=== PATIENT | female | born 1945 | race Caucasian/White ===

== ENCOUNTER 2016-08-08 14:57 | Inpatient (IN) | payer MEDICARE, SELFPAY ==
[~2016-08-08] VITALS: Ht 162.6 cm; Wt 50.0 kg
[2016-08-08] MEDS ORDERED: DILTIAZEM 125 MG in DEXTROSE 5% 100 ML IV SCH (15:15)
[2016-08-08] MEDS ORDERED: DILTIAZEM 5 MG/ML, 5ML ONE (15:16)
[2016-08-08] MEDS ORDERED: SODIUM CHLORIDE FLUSH 10ML SYR IVF ONE (15:30)
[2016-08-08] MEDS ORDERED: DILTIAZEM 5 MG/ML, 5ML IV ONE (15:30)
[2016-08-08 15:44] LABS: HEMOGLOBIN 15.2 g/dL (11.7-16.4)
[2016-08-08] MEDS ORDERED: SODIUM CHLORIDE 0.9%, 500ML IVBOLUS ONE (16:00)
[2016-08-08 16:02] LABS: ASPARTATE AMINO TRANSFERASE 26 U/L (15-37); BLOOD UREA NITROGEN 18 mg/dL (7-18)
[2016-08-08 16:21] LABS: IS PT STATUS REG ER OR PRE ER? YES
[2016-08-08] MEDS ORDERED: DIGOXIN 0.25 MG/ML, 2ML IVPush ONE (16:30)
[2016-08-08] MEDS ORDERED: HEPARIN 25,000 UNITS/500ML PMX 500 ML IV PRN ×2 (16:30→18:00)
[2016-08-08] MEDS ORDERED: DIGOXIN 0.25 MG/ML, 2ML ONE (16:45)
[2016-08-08] MEDS ORDERED: HEPARIN 25,000 UNITS/500ML PMX 500 ML ONE (16:58)
[2016-08-08] MEDS ORDERED: HEPARIN 5,000 UNITS/ML, 1ML ONE (16:58)
[2016-08-08 17:49] LABS: ICTOTEST POSITIVE
[2016-08-08] MEDS ORDERED: CEFTRIAXONE PMX 1GM/50ML 50 ML IV ONE (18:00)
[2016-08-08] MEDS ORDERED: HEPARIN 5,000 UNITS/ML, 1ML IV ONE (18:00)
[2016-08-08] MEDS ORDERED: ACETAMINOPHEN 325 MG TABLET PO PRN (19:00)
[2016-08-08] MEDS ORDERED: BISACODYL 10 MG SUPP PR PRN (19:00)
[2016-08-08] MEDS ORDERED: DOCUSATE 100 MG CAPSULE PO PRN (19:00)
[2016-08-08 19:30] LABS: IS PT STATUS REG ER OR PRE ER? YES
[2016-08-08 22:21] VITALS: BP 108/53
[2016-08-08] MEDS ORDERED: DILTIAZEM 125 MG in SODIUM CHLORIDE 0.9% 100 ML IV PRN (23:00)
[2016-08-09 00:56] LABS: IS PT STATUS REG ER OR PRE ER? NO
[2016-08-09] MEDS: HEPARIN 5,000 UNITS/ML, 1ML IV PRN ×3 (01:25→16:22)
[2016-08-09 02:00] VITALS: BP 110/65
[2016-08-09 05:46] LABS: HEMOGLOBIN 14.2 g/dL (11.7-16.4)
[2016-08-09 06:03] LABS: ASPARTATE AMINO TRANSFERASE 30 U/L (15-37); BLOOD UREA NITROGEN 17 mg/dL (7-18)
[2016-08-09 07:11] VITALS: BP 113/66
[2016-08-09] MEDS: DIGOXIN 0.25 MG TABLET PO SCH (11:21)
[2016-08-09] MEDS: DILTIAZEM 60 MG TABLET PO SCH ×3 (11:21→22:49)
[2016-08-09 13:16] VITALS: BP 126/67
[2016-08-09] MEDS ORDERED: FUROSEMIDE 20 MG/2 ML IV ONE (13:30)
[2016-08-09] MEDS ORDERED: MAGNESIUM SULFATE PMX 2GM/50ML 50 ML IV ONE (13:30)
[2016-08-09 18:40] VITALS: BP 110/51
[2016-08-10] MEDS: HEPARIN 5,000 UNITS/ML, 1ML IV PRN ×2 (00:02→12:35)
[2016-08-10 01:35] VITALS: BP 108/58
[2016-08-10] MEDS: DILTIAZEM 60 MG TABLET PO SCH (04:21)
[2016-08-10 06:14] LABS: HEMOGLOBIN 13.4 g/dL (11.7-16.4)
[2016-08-10 06:18] LABS: BLOOD UREA NITROGEN 10 mg/dL (7-18)
[2016-08-10 08:20] VITALS: BP 109/59
[2016-08-10] MEDS: FUROSEMIDE 20 MG TABLET PO SCH (09:34)
[2016-08-10] MEDS: ASPIRIN 325 MG TABLET PO SCH (09:34)
[2016-08-10] MEDS: METOPROLOL TARTRATE 25 MG TABLET PO SCH ×2 (09:34→18:44)
[2016-08-10] MEDS: DILTIAZEM 120 MG CAP.ER.24H PO SCH (09:34)
[2016-08-10] MEDS: DIGOXIN 0.25 MG TABLET PO SCH (09:35)
[2016-08-10] MEDS ORDERED: MAGNESIUM SULFATE PMX 2GM/50ML 50 ML IV ONE (11:30)
[2016-08-10 15:34] VITALS: BP 100/59
[2016-08-10] MEDS: ENOXAPARIN 60 MG/0.6 ML SQ SCH (18:44)
[2016-08-10 19:42] VITALS: BP 106/59
[2016-08-11 03:30] VITALS: BP 116/65
[2016-08-11] MEDS: ASPIRIN 325 MG TABLET PO SCH (05:20)
[2016-08-11] MEDS: ENOXAPARIN 60 MG/0.6 ML SQ SCH ×2 (05:20→17:34)
[2016-08-11] MEDS: METOPROLOL TARTRATE 25 MG TABLET PO SCH ×2 (05:20→17:34)
[2016-08-11 06:04] LABS: HEMOGLOBIN 13.5 g/dL (11.7-16.4)
[2016-08-11 06:22] LABS: BLOOD UREA NITROGEN 10 mg/dL (7-18)
[2016-08-11 07:05] VITALS: BP 94/57
[2016-08-11] MEDS: DILTIAZEM 120 MG CAP.ER.24H PO SCH (08:52)
[2016-08-11] MEDS: DIGOXIN 0.25 MG TABLET PO SCH (08:53)
[2016-08-11] MEDS: FUROSEMIDE 20 MG TABLET PO SCH (08:58)
[2016-08-11 12:55] VITALS: BP 117/76
[2016-08-11 19:19] VITALS: BP 100/60
[2016-08-12 02:37] VITALS: BP 115/79
[2016-08-12] MEDS: METOPROLOL TARTRATE 25 MG TABLET PO SCH (04:52)
[2016-08-12] MEDS: ENOXAPARIN 60 MG/0.6 ML SQ SCH (04:53)
[2016-08-12 05:34] LABS: HEMOGLOBIN 13.1 g/dL (11.7-16.4)
[2016-08-12 05:45] LABS: BLOOD UREA NITROGEN 9 mg/dL (7-18)
[2016-08-12] MEDS: ASPIRIN 325 MG TABLET PO SCH (06:39)
[2016-08-12 06:52] VITALS: BP 106/67
[2016-08-12] MEDS: DIGOXIN 0.25 MG TABLET PO SCH (08:19)
[2016-08-12] MEDS: DILTIAZEM 120 MG CAP.ER.24H PO SCH (08:20)
[2016-08-12] MEDS: FUROSEMIDE 20 MG TABLET PO SCH (08:20)
[2016-08-12] MEDS ORDERED: DILT120C9 PO (11:31)
[2016-08-12] MEDS ORDERED: METO25TA35 PO (11:31)
[2016-08-12] MEDS ORDERED: ASPI325T4 PO (11:31)
[2016-08-12] MEDS ORDERED: FURO20TA3 PO (11:31)
[2016-08-12] MEDS ORDERED: METH10TA6 PO (11:31)
[2016-08-12] MEDS ORDERED: IPRA3AMP NEB (11:34)
[2016-08-12 13:35] VITALS: BP 119/62
== END 2016-08-12 17:21 | DRG 643 ==
LOC: ED 16:33 → EDIP 17:59 → 5SO 19:51
PROVIDERS: ADMIT Internal Medicine; ATTEND Internal Medicine
PROC: 0T9B70Z Drainage of Bladder with Drainage Device, Via Natural or Artificial Opening (ICD-10-PCS; principal; 2016-08-08)
DX: E03.9 Hypothyroidism, unspecified (principal); E43 Unspecified severe protein-calorie malnutrition; E87.1 Hypo-osmolality and hyponatremia; D68.59 Other primary thrombophilia; R64 Cachexia; L03.90 Cellulitis, unspecified; Z68.1 Body mass index [BMI] 19.9 or less, adult; L03.116 Cellulitis of left lower limb; L03.115 Cellulitis of right lower limb; I48.91 Unspecified atrial fibrillation; G62.9 Polyneuropathy, unspecified; R74.8 Abnormal levels of other serum enzymes; F17.210 Nicotine dependence, cigarettes, uncomplicated; J44.9 Chronic obstructive pulmonary disease, unspecified; M06.9 Rheumatoid arthritis, unspecified; I27.2 Other secondary pulmonary hypertension; E05.00 Thyrotoxicosis with diffuse goiter without thyrotoxic crisis or storm; R09.02 Hypoxemia; E83.42 Hypomagnesemia; Z91.81 History of falling; Z90.89 Acquired absence of other organs; Z88.5 Allergy status to narcotic agent; Z88.0 Allergy status to penicillin
CPT/HCPCS: 36415; 70450; 71010; 76536; 80048; 80053; 80061; 81001; 82247; 82248; 82550; 83735; 83880; 84100; 84145; 84439; 84443; 84484; 85025; 85520; 85610; 85730; 87040; 87086; 93005; 93306; 93970; 96361; 96374; 96375; J1644; J1650; J1160; J1940; J3475; J7040

== ENCOUNTER 2016-08-17 19:33 | Inpatient (IN) | payer MEDICARE ==
[~2016-08-17] VITALS: Ht 162.6 cm; Wt 47.4 kg
[~2016-08-17 19:33] MED LIST: ASPI325T4 PO; DILT120C9 PO; FURO20TA3 PO; IPRA3AMP NEB; METH10TA6 PO; METO25TA35 PO
[2016-08-17] MEDS ORDERED: OMNIPAQUE 350 MG/ML, 100ML BOTTLE ONE (20:05)
[2016-08-17] MEDS ORDERED: METO25TA35 PO (20:05)
[2016-08-17] MEDS ORDERED: METH10TA6 PO (20:05)
[2016-08-17] MEDS ORDERED: PLEASE ENTER ALLERGIES MC SCH ×2 (20:30)
[2016-08-17] MEDS ORDERED: ONDANSETRON 2MG/ML, 2ML IVPush ONE ×2 (20:30→21:30)
[2016-08-17] MEDS ORDERED: VANCOMYCIN PER PHARMACY MC PRN (20:30)
[2016-08-17] MEDS ORDERED: PLEASE ENTER HEIGHT AND WEIGHT MC SCH (20:30)
[2016-08-17] MEDS ORDERED: PIPERACILLIN/TAZO/PMX 3.375GM 50 ML ONE (20:38)
[2016-08-17] MEDS ORDERED: ONDANSETRON 2MG/ML, 2ML ONE (20:38)
[2016-08-17] MEDS: PIPERACILLIN/TAZO/PMX 3.375GM 50 ML IV SCH (20:39)
[2016-08-17 20:50] LABS: ASPARTATE AMINO TRANSFERASE 8 U/L (15-37); BLOOD UREA NITROGEN 29 mg/dL (7-18)
[2016-08-17 20:59] LABS: IS PT STATUS REG ER OR PRE ER? YES
[2016-08-17] MEDS ORDERED: VANCOMYCIN 1,200 MG in SODIUM CHLORIDE 0.9% 250 ML IV ONE (21:00)
[2016-08-17] MEDS ORDERED: DILTIAZEM 5 MG/ML, 5ML ONE ×2 (21:00→21:28)
[2016-08-17] MEDS ORDERED: PHARMACOKINETIC CONSULTATION MC ONE (21:00)
[2016-08-17] MEDS ORDERED: MORPHINE SULFATE 4 MG/ML, 1ML ONE (21:18)
[2016-08-17] MEDS ORDERED: SODIUM CHLORIDE 0.9% 1,000ML IVBOLUS ONE (21:30)
[2016-08-17] MEDS ORDERED: MORPHINE SULFATE 4 MG/ML, 1ML IVPush PRN (21:30)
[2016-08-17] MEDS ORDERED: DILTIAZEM 5 MG/ML, 5ML IV ONE (21:30)
[2016-08-17] MEDS ORDERED: morphine SULFATE 10 MG/ML, 1ML IVPush ONE (21:30)
[2016-08-17] MEDS ORDERED: NOREPINEPHRINE 1 MG/ML, 4ML ONE (22:57)
[2016-08-17] MEDS ORDERED: FENTANYL PF 250 MCG/5ML ONE (23:21)
[2016-08-17] MEDS ORDERED: KETAMINE 10 MG/ML, 20ML ONE (23:21)
[2016-08-17] MEDS ORDERED: METOPROLOL 1 MG/ML, 5ML ONE (23:33)
[2016-08-17] MEDS ORDERED: ROCURONIUM 10 MG/ML ONE (23:33)
[2016-08-17] MEDS ORDERED: SUCCINYLCHOLINE 20 MG/ML, 10ML ONE (23:33)
[2016-08-17] MEDS ORDERED: PROPOFOL 10 MG/ML, 20ML ONE (23:33)
[2016-08-18] MEDS ORDERED: ALBUMIN HUMAN 5% 500 ML ONE (00:18)
[2016-08-18] MEDS ORDERED: ALBUMIN HUMAN 25% 50 ML ONE (00:19)
[2016-08-18] MEDS ORDERED: NOREPINEPHRINE 4 MG in SODIUM CHLORIDE 0.9% 246 ML IV PRN (01:30)
[2016-08-18] MEDS ORDERED: PROPOFOL 100 ML IV ONE (02:07)
[2016-08-18] MEDS: PROPOFOL 100 ML IV PRN (02:16)
[2016-08-18] MEDS ORDERED: LIDOCAINE-MPF 1%, 2ML ENDO PRN (02:30)
[2016-08-18] MEDS ORDERED: PHARMACY MAY ADJ FOR RENAL FX MC SCH (02:30)
[2016-08-18 02:45] VITALS: BP 97/55
[2016-08-18] MEDS ORDERED: FILTER 0.22 MICRON IV PRN (03:00)
[2016-08-18] MEDS ORDERED: AMIODARONE 150 MG in DEXTROSE 5% 100 ML IV ONE (03:00)
[2016-08-18] MEDS: AMIODARONE 900 MG in DEXTROSE 5% 482 ML IV PRN ×2 (03:01→21:03)
[2016-08-18] MEDS: PIPERACILLIN/TAZO/PMX 3.375GM 50 ML IV SCH (03:40)
[2016-08-18] MEDS: ALBUTEROL/IPRATROPIUM 2.5MG/0.5MG, 3 ML NPPB SCH ×6 (04:42→21:57)
[2016-08-18] MEDS ORDERED: ALBUTEROL/IPRATROPIUM 2.5MG/0.5MG, 3 ML ONE (04:46)
[2016-08-18] MEDS ORDERED: SODIUM CHLORIDE 0.9% 1,000 ML IV SCH (05:11)
[2016-08-18] MEDS ORDERED: ALBUMIN HUMAN 5% 500 ML IV ONE (05:30)
[2016-08-18] MEDS ORDERED: MAGNESIUM SULFATE PMX 4GM/100M 100 ML IV ONE ×2 (05:30→07:30)
[2016-08-18] MEDS ORDERED: DILTIAZEM 125 MG in SODIUM CHLORIDE 0.9% 100 ML IV PRN (05:30)
[2016-08-18] MEDS ORDERED: PANTOPRAZOLE 80 MG in SODIUM CHLORIDE 0.9% 50 ML IV ONE (05:30)
[2016-08-18] MEDS ORDERED: SODIUM CHLORIDE 0.9% 1,000ML IVBOLUS ONE ×3 (05:30)
[2016-08-18] MEDS ORDERED: PANTOPRAZOLE 80 MG in SODIUM CHLORIDE 0.9% 100 ML IV SCH (05:30)
[2016-08-18] MEDS ORDERED: ONDANSETRON 2MG/ML, 2ML IVP PRN (05:30)
[2016-08-18] MEDS ORDERED: BISACODYL 10 MG SUPP PR PRN (05:30)
[2016-08-18] MEDS ORDERED: DOCUSATE 100 MG CAPSULE PO PRN (05:30)
[2016-08-18] MEDS ORDERED: POLYETHYLENE GLYCOL 17 GM PACKET PO PRN (05:30)
[2016-08-18 05:36] LABS: ABG COLLECTION SITE NOT DOCUMENTED
[2016-08-18] MEDS ORDERED: CEFEPIME 2 GM in DEXTROSE 5% 100 ML IV SCH (06:00)
[2016-08-18] MEDS ORDERED: METRONIDAZOLE PMX 500MG/100ML 100 ML IV SCH (06:00)
[2016-08-18] MEDS ORDERED: ASPIRIN 325 MG TABLET PO SCH (06:00)
[2016-08-18] MEDS: FENTANYL PF 2,500 MCG in SODIUM CHLORIDE 0.9% 200 ML IV PRN (06:23)
[2016-08-18 06:30] LABS: ASPARTATE AMINO TRANSFERASE 8 U/L (15-37); BLOOD UREA NITROGEN 21 mg/dL (7-18)
[2016-08-18 06:49] LABS: DIFF TOTAL CELLS COUNTED 100 CELL DIFF
[2016-08-18 06:55] LABS: POLYCHROMASIA 1+; VERIFY COUNTS? YES
[2016-08-18] MEDS ORDERED: PHARMACOKINETIC MONITORING MC PRN (07:00)
[2016-08-18] MEDS: NOREPINEPHRINE 8 MG in SODIUM CHLORIDE 0.9% 242 ML IV PRN ×2 (07:24→16:04)
[2016-08-18] MEDS ORDERED: MEROPENEM 1 GM in SODIUM CHLORIDE 0.9% 50 ML IV SCH (07:30)
[2016-08-18] MEDS: PANTOPRAZOLE 40 MG IV IVPush SCH ×2 (08:15→21:03)
[2016-08-18] MEDS ORDERED: METOPROLOL TARTRATE 25 MG TABLET PO SCH (09:00)
[2016-08-18] MEDS: FLUCONAZOLE 200 MG/100 ML 100 ML IV SCH (09:51)
[2016-08-18] MEDS: DIPHENHYDRAMINE 50 MG/ML, 1ML IVPush PRN ×2 (09:58→16:02)
[2016-08-18] MEDS: HEPARIN 5,000 UNITS/ML, 1ML SQ SCH (12:54)
[2016-08-18] MEDS: SODIUM CHLORIDE 0.9% 1,000 ML IV SCH ×2 (14:29→22:37)
[2016-08-18] MEDS: MORPHINE SULFATE 4 MG/ML, 1ML IVPush PRN (14:30)
[2016-08-18] MEDS: MEROPENEM 1 GM in SODIUM CHLORIDE 0.9% 100 ML IV SCH (22:37)
[2016-08-19] MEDS ORDERED: SODIUM CHLORIDE 0.9% 1,000ML IVBOLUS ONE (00:30)
[2016-08-19] MEDS: HEPARIN 5,000 UNITS/ML, 1ML SQ SCH ×2 (01:23→13:19)
[2016-08-19] MEDS: ALBUTEROL/IPRATROPIUM 2.5MG/0.5MG, 3 ML NPPB SCH ×6 (02:15→22:31)
[2016-08-19] MEDS ORDERED: SODIUM CHLORIDE 0.9%, 500ML IVBOLUS ONE (02:30)
[2016-08-19] MEDS ORDERED: SODIUM CHLORIDE 0.9% 1,000 ML IV SCH (05:11)
[2016-08-19 05:21] LABS: ABG COLLECTION SITE ARTERIAL LINE
[2016-08-19 05:39] LABS: BLOOD UREA NITROGEN 13 mg/dL (7-18)
[2016-08-19] MEDS: NOREPINEPHRINE 8 MG in SODIUM CHLORIDE 0.9% 242 ML IV PRN ×2 (06:19→17:31)
[2016-08-19] MEDS: MEROPENEM 1 GM in SODIUM CHLORIDE 0.9% 100 ML IV SCH ×3 (06:21→21:49)
[2016-08-19 06:27] LABS: DIFF TOTAL CELLS COUNTED 100 CELL DIFF
[2016-08-19 06:28] LABS: VERIFY COUNTS? YES
[2016-08-19] MEDS: PROPOFOL 100 ML IV PRN ×2 (06:28→19:42)
[2016-08-19] MEDS: DIPHENHYDRAMINE 50 MG/ML, 1ML IVPush SCH ×4 (09:10→21:48)
[2016-08-19] MEDS: FLUCONAZOLE 200 MG/100 ML 100 ML IV SCH (09:10)
[2016-08-19] MEDS: PANTOPRAZOLE 40 MG IV IVPush SCH ×2 (09:10→21:48)
[2016-08-19] MEDS: SODIUM CHLORIDE 0.9% 1,000 ML IV SCH ×2 (09:11→21:48)
[2016-08-19] MEDS ORDERED: VASOPRESSIN 100 UNIT in SODIUM CHLORIDE 0.9% 495 ML IV PRN (15:30)
[2016-08-19] MEDS ORDERED: AMIODARONE 150 MG in DEXTROSE 5% 100 ML IV ONE (15:30)
[2016-08-19] MEDS: HYDROCORTISONE 100 MG INJ. IVPush SCH (17:02)
[2016-08-19] MEDS: MORPHINE SULFATE 4 MG/ML, 1ML IVPush PRN (23:30)
[2016-08-20] MEDS: ALBUTEROL/IPRATROPIUM 2.5MG/0.5MG, 3 ML NPPB SCH ×6 (01:48→22:15)
[2016-08-20] MEDS: DIPHENHYDRAMINE 50 MG/ML, 1ML IVPush SCH ×6 (02:26→19:48)
[2016-08-20] MEDS: AMIODARONE 900 MG in DEXTROSE 5% 482 ML IV PRN (02:27)
[2016-08-20] MEDS: HYDROCORTISONE 100 MG INJ. IVPush SCH ×3 (02:27→17:03)
[2016-08-20] MEDS: HEPARIN 5,000 UNITS/ML, 1ML SQ SCH ×2 (02:28→12:38)
[2016-08-20 03:21] LABS: BLOOD UREA NITROGEN 10 mg/dL (7-18)
[2016-08-20 04:55] LABS: ABG COLLECTION SITE LEFT RADIAL; COLLATERAL CIRCULATION TESTING NORMAL
[2016-08-20] MEDS: SODIUM CHLORIDE 0.9% 1,000 ML IV SCH ×3 (06:19→22:00)
[2016-08-20] MEDS: MEROPENEM 1 GM in SODIUM CHLORIDE 0.9% 100 ML IV SCH ×3 (06:19→22:58)
[2016-08-20] MEDS: NOREPINEPHRINE 8 MG in SODIUM CHLORIDE 0.9% 242 ML IV PRN ×2 (06:23→14:47)
[2016-08-20] MEDS ORDERED: MAGNESIUM SULFATE PMX 4GM/100M 100 ML IV ONE (07:00)
[2016-08-20] MEDS: PANTOPRAZOLE 40 MG IV IVPush SCH ×2 (08:30→19:48)
[2016-08-20] MEDS: FLUCONAZOLE 200 MG/100 ML 100 ML IV SCH (08:33)
[2016-08-20] MEDS: ALBUMIN HUMAN 25% 100 ML IV SCH ×2 (11:30→19:48)
[2016-08-20] MEDS: PROPOFOL 100 ML IV PRN (13:12)
[2016-08-20] MEDS: FENTANYL PF 2,500 MCG in SODIUM CHLORIDE 0.9% 200 ML IV PRN (17:23)
[2016-08-21] MEDS: HEPARIN 5,000 UNITS/ML, 1ML SQ SCH ×3 (00:32→23:55)
[2016-08-21] MEDS: DIPHENHYDRAMINE 50 MG/ML, 1ML IVPush SCH ×7 (00:33→23:54)
[2016-08-21] MEDS: HYDROCORTISONE 100 MG INJ. IVPush SCH ×4 (00:33→23:54)
[2016-08-21] MEDS: ALBUTEROL/IPRATROPIUM 2.5MG/0.5MG, 3 ML NPPB SCH ×6 (02:58→21:48)
[2016-08-21] MEDS: ALBUMIN HUMAN 25% 100 ML IV SCH ×3 (03:39→19:41)
[2016-08-21] MEDS: AMIODARONE 900 MG in DEXTROSE 5% 482 ML IV PRN (03:50)
[2016-08-21] MEDS: NOREPINEPHRINE 8 MG in SODIUM CHLORIDE 0.9% 242 ML IV PRN (03:51)
[2016-08-21] MEDS: PROPOFOL 100 ML IV PRN (03:51)
[2016-08-21 04:00] VITALS: BP 98/52
[2016-08-21 04:13] LABS: BLOOD UREA NITROGEN 9 mg/dL (7-18)
[2016-08-21 04:29] LABS: ABG COLLECTION SITE RIGHT RADIAL; COLLATERAL CIRCULATION TESTING NORMAL
[2016-08-21 04:48] LABS: DIFF TOTAL CELLS COUNTED 100 CELL DIFF
[2016-08-21 04:52] LABS: VERIFY COUNTS? YES
[2016-08-21 04:53] LABS: POLYCHROMASIA 1+
[2016-08-21] MEDS: SODIUM CHLORIDE 0.9% 1,000 ML IV SCH (05:26)
[2016-08-21] MEDS: MEROPENEM 1 GM in SODIUM CHLORIDE 0.9% 100 ML IV SCH ×3 (05:26→23:00)
[2016-08-21] MEDS: FLUCONAZOLE 200 MG/100 ML 100 ML IV SCH (08:20)
[2016-08-21] MEDS: PANTOPRAZOLE 40 MG IV IVPush SCH ×2 (08:20→19:41)
[2016-08-21 08:55] VITALS: BP 108/57
[2016-08-21] MEDS ORDERED: DIGOXIN 0.25 MG/ML, 2ML IVPush ONE ×2 (09:30→16:00)
[2016-08-21 10:07] LABS: PROTEINASE 3 (PR-3) AB <3.5 U/mL (0.0-3.5)
[2016-08-21] MEDS: FENTANYL PF 2,500 MCG in SODIUM CHLORIDE 0.9% 200 ML IV PRN (17:01)
[2016-08-22] MEDS: PROPOFOL 100 ML IV PRN (02:17)
[2016-08-22] MEDS: ALBUTEROL/IPRATROPIUM 2.5MG/0.5MG, 3 ML NPPB SCH ×6 (02:28→23:31)
[2016-08-22] MEDS: ALBUMIN HUMAN 25% 100 ML IV SCH ×3 (03:15→19:46)
[2016-08-22 04:25] LABS: ABG COLLECTION SITE LEFT RADIAL; COLLATERAL CIRCULATION TESTING NORMAL
[2016-08-22] MEDS: DIPHENHYDRAMINE 50 MG/ML, 1ML IVPush SCH ×5 (04:33→19:46)
[2016-08-22 04:57] LABS: BLOOD UREA NITROGEN 7 mg/dL (7-18)
[2016-08-22] MEDS: MEROPENEM 1 GM in SODIUM CHLORIDE 0.9% 100 ML IV SCH ×3 (06:02→23:34)
[2016-08-22] MEDS ORDERED: MAGNESIUM SULFATE PMX 4GM/100M 100 ML IV ONE (07:00)
[2016-08-22] MEDS: FLUCONAZOLE 200 MG/100 ML 100 ML IV SCH (09:35)
[2016-08-22] MEDS: HYDROCORTISONE 100 MG INJ. IVPush SCH ×2 (09:36→16:46)
[2016-08-22] MEDS: PANTOPRAZOLE 40 MG IV IVPush SCH ×2 (09:36→19:46)
[2016-08-22] MEDS: POTASSIUM CHLORIDE 10% 40 MEQ/30 ML UDC PO SCH ×2 (09:59→19:46)
[2016-08-22] MEDS: DIGOXIN 0.25 MG TABLET PO SCH (09:59)
[2016-08-22] MEDS: SODIUM CHLORIDE 0.9% 1,000 ML IV SCH (13:59)
[2016-08-22] MEDS: HEPARIN 5,000 UNITS/ML, 1ML SQ SCH (13:59)
[2016-08-22] MEDS ORDERED: ALBUTEROL/IPRATROPIUM 2.5MG/0.5MG, 3 ML NPPB PRN (19:00)
[2016-08-22 23:44] LABS: ABG COLLECTION SITE LEFT RADIAL; COLLATERAL CIRCULATION TESTING NORMAL
[2016-08-23] MEDS: HEPARIN 5,000 UNITS/ML, 1ML SQ SCH ×2 (01:00→14:47)
[2016-08-23 01:15] LABS: ABG COLLECTION SITE LEFT RADIAL; COLLATERAL CIRCULATION TESTING NORMAL
[2016-08-23] MEDS ORDERED: FUROSEMIDE 40 MG/4 ML ONE (01:41)
[2016-08-23] MEDS ORDERED: FUROSEMIDE 40 MG/4 ML IV STA (01:42)
[2016-08-23 02:56] LABS: ABG COLLECTION SITE LEFT RADIAL; COLLATERAL CIRCULATION TESTING NORMAL
[2016-08-23] MEDS: ALBUMIN HUMAN 25% 100 ML IV SCH ×3 (04:10→21:54)
[2016-08-23] MEDS: DIPHENHYDRAMINE 50 MG/ML, 1ML IVPush SCH ×3 (04:10→08:30)
[2016-08-23 04:29] LABS: ABG COLLECTION SITE LEFT RADIAL; COLLATERAL CIRCULATION TESTING NORMAL
[2016-08-23 05:01] LABS: BLOOD UREA NITROGEN 9 mg/dL (7-18)
[2016-08-23] MEDS: MEROPENEM 1 GM in SODIUM CHLORIDE 0.9% 100 ML IV SCH ×3 (05:54→22:55)
[2016-08-23 06:11] LABS: DIFF TOTAL CELLS COUNTED 100 CELL DIFF
[2016-08-23 06:14] LABS: VERIFY COUNTS? YES
[2016-08-23 06:18] LABS: POLYCHROMASIA 1+
[2016-08-23] MEDS: FLUCONAZOLE 200 MG/100 ML 100 ML IV SCH (08:54)
[2016-08-23] MEDS: PANTOPRAZOLE 40 MG IV IVPush SCH ×2 (08:55→19:40)
[2016-08-23] MEDS: HYDROCORTISONE 100 MG INJ. IVPush SCH ×3 (08:55→17:15)
[2016-08-23] MEDS: DIGOXIN 0.25 MG TABLET PO SCH (08:56)
[2016-08-23] MEDS: ALBUTEROL/IPRATROPIUM 2.5MG/0.5MG, 3 ML NPPB SCH (10:00)
[2016-08-23] MEDS: POTASSIUM CHLORIDE 10% 40 MEQ/30 ML UDC NG SCH ×2 (10:40→19:41)
[2016-08-23] MEDS ORDERED: PROPOFOL 10 MG/ML, 20ML ONE (12:00)
[2016-08-23] MEDS ORDERED: PROPOFOL 10 MG/ML, 100ML IV ONE (12:00)
[2016-08-23] MEDS ORDERED: VECURONIUM 10 MG ONE (12:00)
[2016-08-23] MEDS: SODIUM CHLORIDE 0.9% 1,000 ML IV SCH (14:49)
[2016-08-23] MEDS: ALBUTEROL/IPRATROPIUM 2.5MG/0.5MG, 3 ML INLINE SCH ×2 (19:00→22:04)
[2016-08-23] MEDS: PROPOFOL 100 ML IV PRN (19:40)
[2016-08-24] MEDS: HEPARIN 5,000 UNITS/ML, 1ML SQ SCH ×2 (00:25→12:19)
[2016-08-24] MEDS: HYDROCORTISONE 100 MG INJ. IVPush SCH ×3 (00:25→17:45)
[2016-08-24] MEDS: AMIODARONE 900 MG in DEXTROSE 5% 482 ML IV PRN (00:26)
[2016-08-24] MEDS: ALBUTEROL/IPRATROPIUM 2.5MG/0.5MG, 3 ML INLINE SCH ×6 (03:00→23:00)
[2016-08-24 04:29] LABS: ABG COLLECTION SITE RIGHT RADIAL; COLLATERAL CIRCULATION TESTING NORMAL
[2016-08-24 04:42] LABS: BLOOD UREA NITROGEN 11 mg/dL (7-18)
[2016-08-24 05:05] LABS: DIFF TOTAL CELLS COUNTED 100 CELL DIFF
[2016-08-24 05:12] LABS: VERIFY COUNTS? YES
[2016-08-24 05:14] LABS: ANISOCYTOSIS 1+; HYPOCHROMIA 1+; POLYCHROMASIA 1+; TARGET CELLS 1+
[2016-08-24] MEDS: PROPOFOL 100 ML IV PRN ×2 (05:34→17:25)
[2016-08-24] MEDS: ALBUMIN HUMAN 25% 100 ML IV SCH ×3 (05:34→22:43)
[2016-08-24] MEDS: FENTANYL PF 2,500 MCG in SODIUM CHLORIDE 0.9% 200 ML IV PRN (05:35)
[2016-08-24] MEDS: MEROPENEM 1 GM in SODIUM CHLORIDE 0.9% 100 ML IV SCH ×3 (06:21→22:43)
[2016-08-24] MEDS ORDERED: MAGNESIUM SULFATE PMX 4GM/100M 100 ML IV ONE (07:00)
[2016-08-24] MEDS ORDERED: BISACODYL 10 MG SUPP PR PRN (08:00)
[2016-08-24] MEDS: POTASSIUM CHLORIDE 10% 40 MEQ/30 ML UDC NG SCH ×2 (09:12→20:54)
[2016-08-24] MEDS: PANTOPRAZOLE 40 MG IV IVPush SCH ×2 (09:12→20:54)
[2016-08-24] MEDS: FLUCONAZOLE 200 MG/100 ML 100 ML IV SCH (09:12)
[2016-08-24] MEDS: DIGOXIN 0.25 MG TABLET PO SCH (09:13)
[2016-08-24] MEDS ORDERED: FUROSEMIDE 40 MG/4 ML IV ONE (10:00)
[2016-08-24] MEDS ORDERED: FUROSEMIDE 40 MG/4 ML IV SCH (17:00)
[2016-08-24] MEDS ORDERED: INSULIN REGULAR 100 UNITS/ML, 3ML VIAL ONE (19:24)
[2016-08-24] MEDS: SODIUM CHLORIDE 0.9% 1,000 ML IV SCH (20:54)
[2016-08-25] MEDS: HEPARIN 5,000 UNITS/ML, 1ML SQ SCH ×2 (00:06→13:11)
[2016-08-25] MEDS: HYDROCORTISONE 100 MG INJ. IVPush SCH ×4 (00:06→23:51)
[2016-08-25] MEDS: PROPOFOL 100 ML IV PRN ×4 (00:10→20:24)
[2016-08-25] MEDS: ALBUTEROL/IPRATROPIUM 2.5MG/0.5MG, 3 ML INLINE SCH ×6 (03:00→23:06)
[2016-08-25] MEDS: AMIODARONE 900 MG in DEXTROSE 5% 482 ML IV PRN (03:35)
[2016-08-25 04:28] LABS: BLOOD UREA NITROGEN 18 mg/dL (7-18)
[2016-08-25 04:46] LABS: ABG COLLECTION SITE RIGHT BRACHIAL
[2016-08-25] MEDS: AcetaZOLAMIDE INJ 500 MG IVPush SCH ×2 (05:54→16:11)
[2016-08-25] MEDS: ALBUMIN HUMAN 25% 100 ML IV SCH ×3 (05:54→22:53)
[2016-08-25] MEDS: MEROPENEM 1 GM in SODIUM CHLORIDE 0.9% 100 ML IV SCH ×3 (05:54→22:53)
[2016-08-25] MEDS ORDERED: METOPROLOL TARTRATE 50 MG TABLET PO SCH (08:00)
[2016-08-25] MEDS: DIGOXIN 0.25 MG TABLET PO SCH (09:42)
[2016-08-25] MEDS: PANTOPRAZOLE 40 MG IV IVPush SCH ×2 (09:44→20:22)
[2016-08-25] MEDS: POTASSIUM CHLORIDE 10% 40 MEQ/30 ML UDC NG SCH ×3 (09:45→20:22)
[2016-08-25 11:46] LABS: ABG COLLECTION SITE RIGHT RADIAL; COLLATERAL CIRCULATION TESTING NORMAL
[2016-08-25] MEDS: METOPROLOL TARTRATE 25 MG TABLET PO SCH (18:04)
[2016-08-25] MEDS: SODIUM CHLORIDE 0.9% 1,000 ML IV SCH (20:23)
[2016-08-25] MEDS: MORPHINE SULFATE 4 MG/ML, 1ML IVPush PRN (21:30)
[2016-08-26] MEDS: HEPARIN 5,000 UNITS/ML, 1ML SQ SCH ×3 (02:12→23:31)
[2016-08-26] MEDS: ALBUTEROL/IPRATROPIUM 2.5MG/0.5MG, 3 ML INLINE SCH ×6 (02:25→22:05)
[2016-08-26 04:49] LABS: BLOOD UREA NITROGEN 20 mg/dL (7-18)
[2016-08-26] MEDS: PROPOFOL 100 ML IV PRN ×2 (04:53→17:59)
[2016-08-26 04:54] LABS: ABG COLLECTION SITE RIGHT BRACHIAL
[2016-08-26] MEDS: AcetaZOLAMIDE INJ 500 MG IVPush SCH ×2 (05:20→17:53)
[2016-08-26] MEDS: METOPROLOL TARTRATE 25 MG TABLET PO SCH ×2 (05:21→17:53)
[2016-08-26] MEDS: ALBUMIN HUMAN 25% 100 ML IV SCH ×3 (05:22→21:50)
[2016-08-26] MEDS: MEROPENEM 1 GM in SODIUM CHLORIDE 0.9% 100 ML IV SCH ×3 (05:22→21:50)
[2016-08-26] MEDS: POTASSIUM CHLORIDE 10% 40 MEQ/30 ML UDC NG SCH ×3 (07:45→20:30)
[2016-08-26] MEDS: MORPHINE SULFATE 4 MG/ML, 1ML IVPush PRN ×4 (07:45→23:32)
[2016-08-26] MEDS: PANTOPRAZOLE 40 MG IV IVPush SCH ×2 (07:46→19:45)
[2016-08-26] MEDS: HYDROCORTISONE 100 MG INJ. IVPush SCH ×3 (07:46→23:32)
[2016-08-26] MEDS: DIGOXIN 0.25 MG TABLET PO SCH (07:46)
[2016-08-26] MEDS: SODIUM CHLORIDE 0.9% 1,000 ML IV SCH (20:31)
[2016-08-27] MEDS: ALBUTEROL/IPRATROPIUM 2.5MG/0.5MG, 3 ML INLINE SCH ×6 (01:40→21:50)
[2016-08-27] MEDS: PROPOFOL 100 ML IV PRN ×3 (02:43→23:57)
[2016-08-27 04:34] LABS: BLOOD UREA NITROGEN 25 mg/dL (7-18)
[2016-08-27] MEDS: AcetaZOLAMIDE INJ 500 MG IVPush SCH ×2 (04:35→16:06)
[2016-08-27 04:46] LABS: ABG COLLECTION SITE LEFT RADIAL
[2016-08-27 04:47] LABS: COLLATERAL CIRCULATION TESTING NORMAL
[2016-08-27] MEDS: MEROPENEM 1 GM in SODIUM CHLORIDE 0.9% 100 ML IV SCH ×3 (05:56→22:16)
[2016-08-27] MEDS: METOPROLOL TARTRATE 25 MG TABLET PO SCH ×2 (05:56→18:00)
[2016-08-27] MEDS: ALBUMIN HUMAN 25% 100 ML IV SCH ×3 (05:56→22:15)
[2016-08-27] MEDS: POTASSIUM CHLORIDE 10% 40 MEQ/30 ML UDC NG SCH (09:00)
[2016-08-27] MEDS: PANTOPRAZOLE 40 MG IV IVPush SCH ×2 (09:00→20:01)
[2016-08-27] MEDS: DIGOXIN 0.25 MG TABLET PO SCH (09:00)
[2016-08-27] MEDS: HYDROCORTISONE 100 MG INJ. IVPush SCH ×3 (09:01→23:56)
[2016-08-27] MEDS: MORPHINE SULFATE 4 MG/ML, 1ML IVPush PRN ×3 (11:24→23:56)
[2016-08-27] MEDS: SODIUM CHLORIDE 0.9% 1,000 ML IV SCH (20:00)
[2016-08-28] MEDS: ALBUTEROL/IPRATROPIUM 2.5MG/0.5MG, 3 ML INLINE SCH ×6 (01:49→22:30)
[2016-08-28 04:20] LABS: DIFF TOTAL CELLS COUNTED 100 CELL DIFF
[2016-08-28 04:26] LABS: BLOOD UREA NITROGEN 35 mg/dL (7-18)
[2016-08-28 04:50] LABS: ABG COLLECTION SITE RIGHT BRACHIAL; COLLATERAL CIRCULATION TESTING NORMAL
[2016-08-28 05:15] LABS: VERIFY COUNTS? YES
[2016-08-28] MEDS: MEROPENEM 1 GM in SODIUM CHLORIDE 0.9% 100 ML IV SCH ×3 (05:21→22:27)
[2016-08-28] MEDS: AcetaZOLAMIDE INJ 500 MG IVPush SCH ×2 (05:21→16:22)
[2016-08-28] MEDS: METOPROLOL TARTRATE 25 MG TABLET PO SCH ×2 (05:23→17:47)
[2016-08-28] MEDS: ALBUMIN HUMAN 25% 100 ML IV SCH ×3 (05:48→22:27)
[2016-08-28] MEDS: HYDROCORTISONE 100 MG INJ. IVPush SCH ×2 (07:40→16:23)
[2016-08-28] MEDS: PANTOPRAZOLE 40 MG IV IVPush SCH ×2 (07:40→20:19)
[2016-08-28] MEDS: PROPOFOL 100 ML IV PRN ×2 (07:41→16:22)
[2016-08-28] MEDS ORDERED: MAGNESIUM SULFATE PMX 2GM/50ML 50 ML IVPB ONE (09:00)
[2016-08-28] MEDS: POTASSIUM CHLORIDE 40 MEQ in SODIUM CHLORIDE 0.9% 100 ML IV SCH ×2 (10:10→16:22)
[2016-08-28] MEDS: DIGOXIN 0.25 MG TABLET PO SCH (10:23)
[2016-08-28] MEDS: D5%-0.9% NACL 1,000 ML IV SCH (20:17)
[2016-08-28] MEDS: SODIUM CHLORIDE 0.9% 1,000 ML IV SCH (21:00)
[2016-08-28] MEDS: MORPHINE SULFATE 4 MG/ML, 1ML IVPush PRN (23:12)
[2016-08-29] VITALS (7 sets, daily range): BP systolic 111–162; BP diastolic 54–91
[2016-08-29] MEDS: ALBUTEROL/IPRATROPIUM 2.5MG/0.5MG, 3 ML INLINE SCH ×6 (02:40→22:31)
[2016-08-29 03:51] LABS: BLOOD UREA NITROGEN 28 mg/dL (7-18)
[2016-08-29] MEDS: PROPOFOL 100 ML IV PRN (04:19)
[2016-08-29 04:22] LABS: DIFF TOTAL CELLS COUNTED 100 CELL DIFF
[2016-08-29 04:25] LABS: VERIFY COUNTS? YES
[2016-08-29 04:26] LABS: ANISOCYTOSIS 1+; HYPOCHROMIA 1+; POLYCHROMASIA 1+
[2016-08-29] MEDS: KSCALE TO 4.0 IV SCH ×3 (04:30→21:41)
[2016-08-29] MEDS ORDERED: POTASSIUM CHLORIDE 30 MEQ in SODIUM CHLORIDE 0.9% 100 ML IV ONE (04:30)
[2016-08-29] MEDS: AcetaZOLAMIDE INJ 500 MG IVPush SCH ×2 (04:33→18:40)
[2016-08-29 04:42] LABS: ABG COLLECTION SITE LEFT BRACHIAL
[2016-08-29] MEDS: METOPROLOL TARTRATE 25 MG TABLET PO SCH ×2 (05:46→18:41)
[2016-08-29] MEDS: MEROPENEM 1 GM in SODIUM CHLORIDE 0.9% 100 ML IV SCH ×3 (06:07→22:38)
[2016-08-29] MEDS: ALBUMIN HUMAN 25% 100 ML IV SCH ×3 (07:01→23:15)
[2016-08-29] MEDS: DIGOXIN 0.25 MG TABLET PO SCH (08:29)
[2016-08-29] MEDS: HYDROCORTISONE 100 MG INJ. IVPush SCH ×2 (08:30→21:27)
[2016-08-29] MEDS: PANTOPRAZOLE 40 MG IV IVPush SCH ×2 (08:30→20:24)
[2016-08-29] MEDS ORDERED: POTASSIUM CHLORIDE PMX 100 ML IV ONE ×3 (13:00→23:45)
[2016-08-29] MEDS: D5%-0.9% NACL 1,000 ML IV SCH (13:36)
[2016-08-30] MEDS: KSCALE TO 4.0 IV SCH ×4 (00:10→19:30)
[2016-08-30] MEDS: MORPHINE SULFATE 4 MG/ML, 1ML IVPush PRN ×2 (00:37→14:10)
[2016-08-30] MEDS: ALBUTEROL/IPRATROPIUM 2.5MG/0.5MG, 3 ML INLINE SCH ×6 (02:08→22:21)
[2016-08-30 04:52] LABS: ABG COLLECTION SITE LEFT BRACHIAL
[2016-08-30] MEDS: AcetaZOLAMIDE INJ 500 MG IVPush SCH ×2 (05:30→17:06)
[2016-08-30 05:41] LABS: BLOOD UREA NITROGEN 25 mg/dL (7-18)
[2016-08-30] MEDS: D5%-0.9% NACL 1,000 ML IV SCH (06:01)
[2016-08-30 06:20] VITALS: BP 144/79
[2016-08-30] MEDS ORDERED: POTASSIUM CHLORIDE PMX 100 ML IV ONE ×2 (06:30→13:30)
[2016-08-30] MEDS: METOPROLOL TARTRATE 25 MG TABLET PO SCH ×2 (06:34→18:12)
[2016-08-30] MEDS: MEROPENEM 1 GM in SODIUM CHLORIDE 0.9% 100 ML IV SCH ×3 (06:34→22:12)
[2016-08-30] MEDS ORDERED: MAGNESIUM SULFATE PMX 2GM/50ML 50 ML IV ONE (08:30)
[2016-08-30] MEDS: DIGOXIN 0.25 MG TABLET PO SCH ×2 (08:43→12:26)
[2016-08-30] MEDS: HYDROCORTISONE 100 MG INJ. IVPush SCH (08:43)
[2016-08-30] MEDS: ALBUMIN HUMAN 25% 100 ML IV SCH ×3 (08:43→22:46)
[2016-08-30] MEDS: PANTOPRAZOLE 40 MG IV IVPush SCH ×2 (08:43→19:57)
[2016-08-30] MEDS ORDERED: MAGNESIUM SULFATE PMX 4GM/100M 100 ML IV ONE (19:00)
[2016-08-30] MEDS ORDERED: DEXTROSE 5% 1,000 ML IV SCH (19:00)
[2016-08-30] MEDS: DEXTROSE 5% 1,000 ML IV SCH (19:26)
[2016-08-30] MEDS ORDERED: POTASSIUM CHLORIDE 30 MEQ in SODIUM CHLORIDE 0.9% 100 ML IV ONE (21:30)
[2016-08-31] MEDS: KSCALE TO 4.0 IV SCH ×2 (01:30→07:13)
[2016-08-31] MEDS: ALBUTEROL/IPRATROPIUM 2.5MG/0.5MG, 3 ML INLINE SCH ×6 (02:07→21:37)
[2016-08-31] MEDS ORDERED: POTASSIUM CHLORIDE PMX 100 ML IV ONE ×2 (02:30→06:30)
[2016-08-31 04:32] LABS: ABG COLLECTION SITE RIGHT RADIAL; COLLATERAL CIRCULATION TESTING NORMAL
[2016-08-31] MEDS: AcetaZOLAMIDE INJ 500 MG IVPush SCH (05:07)
[2016-08-31 05:26] LABS: BLOOD UREA NITROGEN 19 mg/dL (7-18)
[2016-08-31] MEDS: MEROPENEM 1 GM in SODIUM CHLORIDE 0.9% 100 ML IV SCH ×3 (05:51→22:05)
[2016-08-31] MEDS: METOPROLOL TARTRATE 25 MG TABLET PO SCH ×2 (05:57→18:04)
[2016-08-31] MEDS: ALBUMIN HUMAN 25% 100 ML IV SCH (06:15)
[2016-08-31] MEDS: DEXTROSE 5% 1,000 ML IV SCH ×2 (08:59→21:57)
[2016-08-31] MEDS: DIGOXIN 0.25 MG TABLET PO SCH (08:59)
[2016-08-31] MEDS: PANTOPRAZOLE 40 MG IV IVPush SCH ×2 (09:00→19:53)
[2016-08-31] MEDS ORDERED: POTASSIUM PHOSPHATE 44 MEQ in DEXTROSE 5% 500 ML IV ONE (11:00)
[2016-09-01] MEDS: ALBUTEROL/IPRATROPIUM 2.5MG/0.5MG, 3 ML INLINE SCH ×6 (01:54→22:01)
[2016-09-01 04:41] LABS: ABG COLLECTION SITE LEFT RADIAL; COLLATERAL CIRCULATION TESTING NORMAL
[2016-09-01 04:58] LABS: ASPARTATE AMINO TRANSFERASE 21 U/L (15-37); BLOOD UREA NITROGEN 20 mg/dL (7-18)
[2016-09-01] MEDS: MEROPENEM 1 GM in SODIUM CHLORIDE 0.9% 100 ML IV SCH ×3 (05:59→22:19)
[2016-09-01] MEDS: METOPROLOL TARTRATE 25 MG TABLET PO SCH ×3 (05:59→18:59)
[2016-09-01] MEDS: PANTOPRAZOLE 40 MG IV IVPush SCH ×2 (09:44→19:53)
[2016-09-01] MEDS: DIGOXIN 0.25 MG TABLET PO SCH (09:44)
[2016-09-02] MEDS: ALBUTEROL/IPRATROPIUM 2.5MG/0.5MG, 3 ML INLINE SCH ×6 (02:35→22:10)
[2016-09-02 04:40] LABS: ABG COLLECTION SITE LEFT RADIAL; COLLATERAL CIRCULATION TESTING NORMAL
[2016-09-02 05:31] LABS: BLOOD UREA NITROGEN 22 mg/dL (7-18)
[2016-09-02] MEDS: METOPROLOL TARTRATE 25 MG TABLET PO SCH ×2 (06:00→18:00)
[2016-09-02] MEDS: MEROPENEM 1 GM in SODIUM CHLORIDE 0.9% 100 ML IV SCH ×3 (06:22→22:09)
[2016-09-02] MEDS: PANTOPRAZOLE 40 MG IV IVPush SCH ×2 (09:09→20:26)
[2016-09-02] MEDS: DIGOXIN 0.25 MG TABLET PO SCH (09:09)
[2016-09-03] MEDS: ALBUTEROL/IPRATROPIUM 2.5MG/0.5MG, 3 ML INLINE SCH ×2 (02:20→07:06)
[2016-09-03 04:28] LABS: BLOOD UREA NITROGEN 23 mg/dL (7-18)
[2016-09-03 04:46] LABS: ABG COLLECTION SITE RIGHT BRACHIAL
[2016-09-03] MEDS: MEROPENEM 1 GM in SODIUM CHLORIDE 0.9% 100 ML IV SCH ×3 (05:56→22:26)
[2016-09-03 05:58] LABS: DIFF TOTAL CELLS COUNTED 100 CELL DIFF
[2016-09-03 06:00] LABS: ANISOCYTOSIS 1+; VERIFY COUNTS? YES
[2016-09-03] MEDS: METOPROLOL TARTRATE 25 MG TABLET PO SCH ×2 (06:30→18:02)
[2016-09-03] MEDS: PANTOPRAZOLE 40 MG IV IVPush SCH ×2 (08:00→20:16)
[2016-09-03] MEDS: DIGOXIN 0.25 MG TABLET PO SCH (09:00)
[2016-09-03] MEDS ORDERED: ALBUTEROL/IPRATROPIUM 2.5MG/0.5MG, 3 ML ONE ×2 (10:33→18:56)
[2016-09-03] MEDS: ALBUTEROL/IPRATROPIUM 2.5MG/0.5MG, 3 ML NPPB SCH ×3 (11:17→19:15)
[2016-09-04 04:26] LABS: ABG COLLECTION SITE RIGHT RADIAL
[2016-09-04 04:27] LABS: COLLATERAL CIRCULATION TESTING NORMAL
[2016-09-04 04:37] LABS: BLOOD UREA NITROGEN 17 mg/dL (7-18)
[2016-09-04 04:47] LABS: DIFF TOTAL CELLS COUNTED 100 CELL DIFF
[2016-09-04 04:49] LABS: ANISOCYTOSIS 1+
[2016-09-04 04:50] LABS: LARGE PLATELETS 1+
[2016-09-04 05:29] LABS: VERIFY COUNTS? YES
[2016-09-04] MEDS: MEROPENEM 1 GM in SODIUM CHLORIDE 0.9% 100 ML IV SCH ×3 (06:00→22:33)
[2016-09-04] MEDS: METOPROLOL TARTRATE 25 MG TABLET PO SCH ×2 (06:00→18:09)
[2016-09-04] MEDS ORDERED: MAGNESIUM SULFATE PMX 4GM/100M 100 ML IV ONE (07:00)
[2016-09-04] MEDS: ALBUTEROL/IPRATROPIUM 2.5MG/0.5MG, 3 ML NPPB SCH ×4 (07:35→18:47)
[2016-09-04] MEDS ORDERED: AcetaZOLAMIDE INJ 500 MG IVPush ONE (08:30)
[2016-09-04] MEDS: PANTOPRAZOLE 40 MG IV IVPush SCH ×2 (09:24→21:16)
[2016-09-04] MEDS: DIGOXIN 0.25 MG TABLET PO SCH (09:27)
[2016-09-04] MEDS: MORPHINE SULFATE 4 MG/ML, 1ML IVPush PRN (21:16)
[2016-09-05] MEDS: METOPROLOL TARTRATE 25 MG TABLET PO SCH ×2 (04:18→19:44)
[2016-09-05 05:17] LABS: BLOOD UREA NITROGEN 21 mg/dL (7-18)
[2016-09-05 05:41] LABS: DIFF TOTAL CELLS COUNTED 100 CELL DIFF
[2016-09-05 05:43] LABS: ANISOCYTOSIS 1+; VERIFY COUNTS? YES
[2016-09-05] MEDS: MEROPENEM 1 GM in SODIUM CHLORIDE 0.9% 100 ML IV SCH ×3 (06:28→23:00)
[2016-09-05] MEDS: ALBUTEROL/IPRATROPIUM 2.5MG/0.5MG, 3 ML NPPB SCH ×4 (07:00→19:43)
[2016-09-05] MEDS: PANTOPRAZOLE 40 MG IV IVPush SCH ×2 (08:13→20:15)
[2016-09-05] MEDS: DIGOXIN 0.25 MG TABLET PO SCH (08:30)
[2016-09-05] MEDS ORDERED: IPRA3AMP NPPB (15:54)
[2016-09-05] MEDS ORDERED: BISA10SU65 PR (15:54)
[2016-09-05] MEDS ORDERED: DIGO250T PO (15:54)
[2016-09-05] MEDS ORDERED: Pantoprazole Sodium IVPush (15:54)
[2016-09-05] MEDS ORDERED: METO25TA35 PO (15:54)
[2016-09-05] MEDS ORDERED: MORP4VIA IVPush (15:54)
[2016-09-05] MEDS ORDERED: DOCU-30 PO (15:54)
[2016-09-05] MEDS ORDERED: ALPR0.254 PO (15:54)
[2016-09-05] MEDS ORDERED: ONDA4VIA4 IVP (15:54)
[2016-09-06] MEDS: MEROPENEM 1 GM in SODIUM CHLORIDE 0.9% 100 ML IV SCH (06:21)
[2016-09-06] MEDS: METOPROLOL TARTRATE 25 MG TABLET PO SCH (06:21)
[2016-09-06] MEDS: ALBUTEROL/IPRATROPIUM 2.5MG/0.5MG, 3 ML NPPB SCH (07:00)
[2016-09-06] MEDS: PANTOPRAZOLE 40 MG IV IVPush SCH (07:49)
[2016-09-06] MEDS: DIGOXIN 0.25 MG TABLET PO SCH (07:50)
[2016-09-06] MEDS ORDERED: MERO1PIG IV (11:55)
== END 2016-09-06 13:47 | DRG 853 ==
LOC: ED 21:21 → EDIP 21:27 → CCU 08-18 01:19
PROVIDERS: ADMIT Internal Medicine; ATTEND Internal Medicine
PROC: 0DB60ZZ Excision of Stomach, Open Approach (ICD-10-PCS; 2016-08-17)
PROC: 0W9G0ZZ Drainage of Peritoneal Cavity, Open Approach (ICD-10-PCS; 2016-08-17)
PROC: 0T9B70Z Drainage of Bladder with Drainage Device, Via Natural or Artificial Opening (ICD-10-PCS; 2016-08-17)
PROC: 3E1M38Z Irrigation of Peritoneal Cavity using Irrigating Substance, Percutaneous Approach (ICD-10-PCS; 2016-08-17)
PROC: 0DU607Z Supplement Stomach with Autologous Tissue Substitute, Open Approach (ICD-10-PCS; 2016-08-17)
PROC: 5A1955Z Respiratory Ventilation, Greater than 96 Consecutive Hours (ICD-10-PCS; 2016-08-17)
PROC: 0BH17EZ Insertion of Endotracheal Airway into Trachea, Via Natural or Artificial Opening (ICD-10-PCS; 2016-08-17)
PROC: 5A1955Z Respiratory Ventilation, Greater than 96 Consecutive Hours (ICD-10-PCS; principal; 2016-08-23)
PROC: 0BH17EZ Insertion of Endotracheal Airway into Trachea, Via Natural or Artificial Opening (ICD-10-PCS; 2016-08-23)
PROC: 30233N1 Transfusion of Nonautologous Red Blood Cells into Peripheral Vein, Percutaneous Approach (ICD-10-PCS; 2016-08-29)
DX: A41.9 Sepsis, unspecified organism (principal); R65.21 Severe sepsis with septic shock; K25.5 Chronic or unspecified gastric ulcer with perforation; K65.1 Peritoneal abscess; E43 Unspecified severe protein-calorie malnutrition; J18.9 Pneumonia, unspecified organism; J96.00 Acute respiratory failure, unspecified whether with hypoxia or hypercapnia; C85.90 Non-Hodgkin lymphoma, unspecified, unspecified site; E87.1 Hypo-osmolality and hyponatremia; Z68.1 Body mass index [BMI] 19.9 or less, adult; E87.0 Hyperosmolality and hypernatremia; E87.3 Alkalosis; I50.32 Chronic diastolic (congestive) heart failure; J44.0 Chronic obstructive pulmonary disease with (acute) lower respiratory infection; K56.7 Ileus, unspecified; Z99.11 Dependence on respirator [ventilator] status; I48.2 Chronic atrial fibrillation; J44.9 Chronic obstructive pulmonary disease, unspecified; D64.9 Anemia, unspecified; E03.9 Hypothyroidism, unspecified; E05.90 Thyrotoxicosis, unspecified without thyrotoxic crisis or storm; E83.42 Hypomagnesemia; E87.6 Hypokalemia; F17.200 Nicotine dependence, unspecified, uncomplicated; G62.9 Polyneuropathy, unspecified; I11.0 Hypertensive heart disease with heart failure; I73.9 Peripheral vascular disease, unspecified; K66.8 Other specified disorders of peritoneum; L27.0 Generalized skin eruption due to drugs and medicaments taken internally; L53.9 Erythematous condition, unspecified; M06.9 Rheumatoid arthritis, unspecified; Z51.5 Encounter for palliative care; Z66 Do not resuscitate; Z79.01 Long term (current) use of anticoagulants; Z87.11 Personal history of peptic ulcer disease; Z88.8 Allergy status to other drugs, medicaments and biological substances; Z88.0 Allergy status to penicillin; Z91.013 Allergy to seafood; Z79.899 Other long term (current) drug therapy
CPT/HCPCS: 36415; 36600; 70450; 71010; 74000; 74177; 74230; 80048; 80053; 80162; 80202; 81003; 81261; 81264; 81340; 81342; 82330; 82533; 82803; 82947; 83520; 83605; 83690; 83735; 83880; 84100; 84132; 84295; 84439; 84443; 84478; 84481; 84484; 85014; 85018; 85025; 85610; 85651; 85730; 86140; 86256; 86850; 86900; 86923; 87040; 87070; 87075; 87081; 87205; 88305; 88341; 88342; 93005; 93922; 93925; 94002; 94003; 94150; 94640; 96365; 96367; 96375; 96376; C1729; J1644; J1940; J2185; J2405; J2543; J2704; J3010; J3370; J3480; J7042; J7070; J7620; P9045; P9047; Q9967; C1751; C9113; G0461; J0282; J0330; J1120; J1160; J1200; J1450; J1720; J2270; J3475; J7030; J7040; J7050; J7060; P9016

== ENCOUNTER 2016-12-21 19:57 | Inpatient (IN) | payer MEDICARE ==
[~2016-12-21] VITALS: Ht 162.6 cm; Wt 53.3 kg
[~2016-12-21 19:57] MED LIST changes: +ALPR0.254 PO; +BISA10SU65 PR; +DIGO250T PO; +DOCU-30 PO; +IPRA3AMP NPPB; +MERO1PIG IV; +MORP4VIA IVPush; +ONDA4VIA4 IVP; +Pantoprazole Sodium IVPush
[2016-12-21] MEDS ORDERED: OMEP40CA6 PO (20:23)
[2016-12-21 20:52] LABS: HEMATOCRIT 42.6 % (34.6-47.8); HEMOGLOBIN 13.8 g/dL (11.7-16.4); WHITE BLOOD COUNT 6.5 x10^3/uL (3.4-10)
[2016-12-21] MEDS ORDERED: SODIUM CHLORIDE FLUSH 10ML SYR IVF ONE (21:00)
[2016-12-21 21:06] LABS: BLOOD UREA NITROGEN 12 mg/dL (7-18)
[2016-12-21 21:12] LABS: IS PT STATUS REG ER OR PRE ER? YES
[2016-12-21] MEDS ORDERED: ONDANSETRON 2MG/ML, 2ML IVPush ONE (22:00)
[2016-12-21] MEDS ORDERED: ASPIRIN 81 MG TABLET CHEW ONE (22:00)
[2016-12-21] MEDS ORDERED: ASPIRIN 81 MG TABLET CHEW PO ONE (22:00)
[2016-12-21] MEDS ORDERED: ONDANSETRON 2MG/ML, 2ML ONE (22:03)
[2016-12-21] MEDS ORDERED: ONDANSETRON 2MG/ML, 2ML IVPush PRN (23:00)
[2016-12-21] MEDS ORDERED: TEMAZEPAM 15 MG CAPSULE PO PRN (23:00)
[2016-12-21] MEDS: METHIMAZOLE MC SCH (23:45)
[2016-12-21 23:58] VITALS: BP 93/62
[2016-12-22 05:13] VITALS: BP 126/73
[2016-12-22] MEDS: METOPROLOL TARTRATE 25 MG TABLET PO SCH ×2 (05:18→20:14)
[2016-12-22] MEDS: ENOXAPARIN 40 MG/0.4 ML SQ SCH (05:18)
[2016-12-22 06:01] LABS: HEMATOCRIT 41.1 % (34.6-47.8); HEMOGLOBIN 13.6 g/dL (11.7-16.4); WHITE BLOOD COUNT 5.8 x10^3/uL (3.4-10)
[2016-12-22 06:17] LABS: IS PT STATUS REG ER OR PRE ER? NO
[2016-12-22 06:24] LABS: BLOOD UREA NITROGEN 11 mg/dL (7-18)
[2016-12-22] MEDS: METHIMAZOLE MC SCH ×3 (07:45→23:45)
[2016-12-22 09:21] VITALS: BP 107/70
[2016-12-22] MEDS: PANTOPROZOLE 40MG TABLET PO SCH (09:54)
[2016-12-22] MEDS: DIGOXIN 0.25 MG TABLET PO SCH (09:54)
[2016-12-22] MEDS: ACETAMINOPHEN 325 MG TABLET PO PRN ×2 (09:54→20:14)
[2016-12-22 13:05] VITALS: BP 100/63
[2016-12-22 19:51] VITALS: BP 120/67
[2016-12-23 01:39] VITALS: BP 119/70
[2016-12-23] MEDS: METOPROLOL TARTRATE 25 MG TABLET PO SCH (05:39)
[2016-12-23] MEDS: ENOXAPARIN 40 MG/0.4 ML SQ SCH (05:39)
[2016-12-23 06:27] VITALS: BP 116/77
[2016-12-23] MEDS: METHIMAZOLE MC SCH (07:45)
[2016-12-23] MEDS: PANTOPROZOLE 40MG TABLET PO SCH (07:56)
[2016-12-23] MEDS: DIGOXIN 0.25 MG TABLET PO SCH (07:56)
== END 2016-12-23 10:05 | disposition home or self-care (01) | DRG 308 ==
LOC: ED 22:17 → EDIP 22:30 → 4EST 23:38 → DCLOUNGE 12-23 10:00
PROVIDERS: ADMIT Internal Medicine; ATTEND Internal Medicine
DX: I48.91 Unspecified atrial fibrillation (principal); I50.33 Acute on chronic diastolic (congestive) heart failure; J96.11 Chronic respiratory failure with hypoxia; D68.59 Other primary thrombophilia; Z99.81 Dependence on supplemental oxygen; J44.9 Chronic obstructive pulmonary disease, unspecified; E05.90 Thyrotoxicosis, unspecified without thyrotoxic crisis or storm; R00.0 Tachycardia, unspecified; R00.2 Palpitations; Z88.8 Allergy status to other drugs, medicaments and biological substances; Z88.5 Allergy status to narcotic agent; Z88.0 Allergy status to penicillin; Z91.013 Allergy to seafood
CPT/HCPCS: 36415; 71010; 80048; 80162; 82040; 83735; 83880; 84443; 84484; 85025; 85610; 93005; 96374; J1650; J2405

== ENCOUNTER 2017-08-24 23:37 | Inpatient (IN) | payer MEDICARE ==
[~2017-08-24] VITALS: Ht 157.5 cm; Wt 59.6 kg
[~2017-08-24 23:37] MED LIST changes: +ASPI325T17 PO; -ASPI325T4 PO; +DOCU-131 PO; -DOCU-30 PO; +OMEP40CA6 PO
[2017-08-24] MEDS ORDERED: methylPREDNISolone SOD SUCC 125 MG/2 ML ONE (23:55)
[2017-08-24] MEDS ORDERED: ALBUTEROL SULFATE 2.5 MG/3 ML ONE (23:58)
[2017-08-25] MEDS ORDERED: ALBUTEROL SULFATE 2.5 MG/3 ML NPPB ONE
[2017-08-25] MEDS ORDERED: methylPREDNISolone SOD SUCC 125 MG/2 ML IVP ONE
[2017-08-25] MEDS ORDERED: SODIUM CHLORIDE FLUSH 10ML SYR IVF ONE
[2017-08-25 00:11] LABS: MEAN CORPUSCULAR HEMOGLOBIN 28.4 pg (27.0-34.8); MEAN CORPUSCULAR HGB CONC 33.1 g/dL (32.4-35.8); PLATELET COUNT 280 x10^3/uL (130-400); RED BLOOD COUNT 4.57 x10^6/uL (3.82-5.3); RED CELL DISTRIBUTION WIDTH 14.7 % (9.6-15.2)
[2017-08-25 00:12] LABS: BASOPHILS # (AUTO) 0.02 x10^3/uL (0-0.1); BASOPHILS % (AUTO) 0 % (0-1); EOSINOPHILS # (AUTO) 0.14 x10^3/uL (0-0.4); EOSINOPHILS % (AUTO) 3 % (1-7); LYMPHOCYTES # (AUTO) 2.05 x10^3/uL (1-3.4); LYMPHOCYTES % (AUTO) 37 % (22-44); MD NO; MEAN PLATELET VOLUME 8.6 fL (7.4-10.4); MONOCYTES # (AUTO) 0.67 x10^3/uL (0.2-0.8); MONOCYTES % (AUTO) 12 % (2-9); NEUTROPHILS # (AUTO) 2.64 x10^3/uL (1.8-6.8); NEUTROPHILS % (AUTO) 48 % (42-75)
[2017-08-25 00:25] LABS: ALANINE AMINOTRANSFERASE 48 U/L (12-78); ALBUMIN 3.6 g/dL (3.4-5.0); ANION GAP 7 mmol/L (5-15); CALCIUM 8.9 mg/dL (8.5-10.1); CHLORIDE 103 mmol/L (98-107); CREATININE 0.62 mg/dL (0.55-1.02)
[2017-08-25 00:30] LABS: ALKALINE PHOSPHATASE 113 U/L (45-117); BILIRUBIN,TOTAL 0.5 mg/dL (0.2-1.0); TOTAL PROTEIN 8.4 g/dL (6.4-8.2); TROPONIN I 0.102 ng/mL (0.000-0.045)
[2017-08-25] MEDS ORDERED: ASPIRIN 81 MG TABLET CHEW ONE (00:39)
[2017-08-25] MEDS ORDERED: DIGOXIN 0.25 MG/ML, 2ML ONE (00:47)
[2017-08-25] MEDS ORDERED: DIGOXIN 0.25 MG/ML, 2ML IVPush ONE (01:00)
[2017-08-25] MEDS ORDERED: DILTIAZEM 5 MG/ML, 5ML IVPush ONE (01:00)
[2017-08-25] MEDS ORDERED: ASPIRIN 81 MG TABLET CHEW PO ONE (01:00)
[2017-08-25] MEDS ORDERED: SODIUM CHLORIDE 0.9% 1,000 ML IV ONE (01:15)
[2017-08-25] MEDS ORDERED: ONDANSETRON 2MG/ML, 2ML IVPush PRN ×2 (01:30→04:00)
[2017-08-25] MEDS ORDERED: ACETAMINOPHEN 325 MG TABLET PO PRN (04:00)
[2017-08-25] MEDS ORDERED: ENALAPRILAT 1.25 MG/ML, 2ML IVPush PRN (04:00)
[2017-08-25] MEDS ORDERED: ALBUTEROL/IPRATROPIUM 2.5MG/0.5MG, 3 ML NPPB PRN (04:00)
[2017-08-25] MEDS ORDERED: morphine SULFATE 10 MG/ML, 1ML IVPush PRN (04:00)
[2017-08-25] MEDS ORDERED: BISACODYL 10 MG SUPP PR PRN (04:00)
[2017-08-25] MEDS ORDERED: hydrALAzine 20 MG/ML, 1ML IVPush PRN (04:00)
[2017-08-25] MEDS ORDERED: POLYETHYLENE GLYCOL 17 GM PACKET PO PRN (04:00)
[2017-08-25 04:42] LABS: TROPONIN I 0.108 ng/mL (0.000-0.045)
[2017-08-25 04:56] LABS: HEMOGLOBIN A1C 5.8 % (4.2-6.3)
[2017-08-25 05:00] LABS: FREE T4 (FREE THYROXINE) 4.8 ng/dL (0.76-1.46); THYROID STIMULATING HORMONE 0.006 mIU/L (0.358-3.740)
[2017-08-25] MEDS: ASPIRIN 81 MG TABLET EC PO SCH (05:34)
[2017-08-25] MEDS ORDERED: HEPARIN 5,000 UNITS/ML, 1ML ONE (05:35)
[2017-08-25] MEDS ORDERED: METOPROLOL TARTRATE 25 MG TABLET ONE ×3 (05:36→15:57)
[2017-08-25] MEDS ORDERED: METOPROLOL TARTRATE 25 MG TABLET PO SCH (06:00)
[2017-08-25 06:05] LABS: MICROSCOPIC NOT IND
[2017-08-25 06:07] LABS: CULTURE INDICATED? NO
[2017-08-25] MEDS ORDERED: OMNIPAQUE 350 MG/ML, 100ML BOTTLE ONE ×2 (06:12→06:31)
[2017-08-25] MEDS: HEPARIN 5,000 UNITS/ML, 1ML SQ SCH ×2 (06:37→16:05)
[2017-08-25] MEDS: ALBUTEROL/IPRATROPIUM 2.5MG/0.5MG, 3 ML NPPB SCH ×4 (07:00→19:35)
[2017-08-25] MEDS ORDERED: methylPREDNISolone SOD SUCC 125 MG/2 ML IVPush SCH (07:00)
[2017-08-25] MEDS ORDERED: ALBUTEROL/IPRATROPIUM 2.5MG/0.5MG, 3 ML ONE (07:05)
[2017-08-25] MEDS: SENNA/DOCUSATE TABLET PO SCH (09:00)
[2017-08-25 09:42] LABS: TROPONIN I 0.098 ng/mL (0.000-0.045)
[2017-08-25 10:06] VITALS: BP 117/51
[2017-08-25] MEDS: DIGOXIN 0.25 MG TABLET PO SCH (11:41)
[2017-08-25] MEDS: OMEPRAZOLE 20 MG CAPSULE.DR PO SCH (11:44)
[2017-08-25] MEDS ORDERED: ASPI-647 PO (13:38)
[2017-08-25] MEDS ORDERED: FURO20TA3 PO (13:38)
[2017-08-25 14:17] VITALS: BP 151/49
[2017-08-25] MEDS: METOPROLOL TARTRATE 25 MG TABLET PO SCH (16:04)
[2017-08-25 19:15] VITALS: BP 102/52
[2017-08-25] MEDS: DOXYCYCLINE 100MG TABLET PO SCH (21:09)
[2017-08-26] MEDS: HEPARIN 5,000 UNITS/ML, 1ML SQ SCH ×3 (00:40→16:44)
[2017-08-26 00:52] VITALS: BP 124/74
[2017-08-26] MEDS: METOPROLOL TARTRATE 25 MG TABLET PO SCH ×2 (05:03→16:41)
[2017-08-26] MEDS: ASPIRIN 81 MG TABLET EC PO SCH (05:03)
[2017-08-26 05:44] LABS: BASOPHILS # (AUTO) 0.03 x10^3/uL (0-0.1); BASOPHILS % (AUTO) 0 % (0-1); EOSINOPHILS # (AUTO) 0.01 x10^3/uL (0-0.4); EOSINOPHILS % (AUTO) 0 % (1-7); LYMPHOCYTES # (AUTO) 2.08 x10^3/uL (1-3.4); LYMPHOCYTES % (AUTO) 16 % (22-44); MD NO; MEAN CORPUSCULAR HEMOGLOBIN 28.6 pg (27.0-34.8); MEAN CORPUSCULAR HGB CONC 33.1 g/dL (32.4-35.8); MEAN CORPUSCULAR VOLUME 86.4 fL (80-100); MONOCYTES % (AUTO) 8 % (2-9); NEUTROPHILS # (AUTO) 9.84 x10^3/uL (1.8-6.8); NEUTROPHILS % (AUTO) 76 % (42-75); PLATELET COUNT 274 x10^3/uL (130-400); RED BLOOD COUNT 4.12 x10^6/uL (3.82-5.3); RED CELL DISTRIBUTION WIDTH 15.2 % (9.6-15.2)
[2017-08-26 05:59] LABS: ALANINE AMINOTRANSFERASE 48 U/L (12-78); ALBUMIN 3.3 g/dL (3.4-5.0); ANION GAP 6 mmol/L (5-15); CALCIUM 9.1 mg/dL (8.5-10.1); CHLORIDE 105 mmol/L (98-107); CHOLESTEROL, TOTAL 128 mg/dL (140-239); CREATININE 0.63 mg/dL (0.55-1.02); TRIGLYCERIDES 119 mg/dL (50-200); VLDL CHOLESTEROL 24 mg/dL (0-25)
[2017-08-26 06:01] LABS: ALKALINE PHOSPHATASE 96 U/L (45-117); BILIRUBIN,TOTAL 0.3 mg/dL (0.2-1.0); HDL CHOLESTEROL (DIRECT) 41 mg/dL (40-60); TOTAL PROTEIN 7.4 g/dL (6.4-8.2)
[2017-08-26 06:09] LABS: CHOL/HDL RATIO 3.1; HDL CHOL % 32 % (28-40); LDL CHOLESTEROL,CALCULATED 64 mg/dL (54-169); LDL/HDL RATIO 1.6 (0.5-3.0)
[2017-08-26] MEDS: ALBUTEROL/IPRATROPIUM 2.5MG/0.5MG, 3 ML NPPB SCH ×4 (06:50→20:09)
[2017-08-26 08:10] VITALS: BP 97/63
[2017-08-26 08:45] VITALS: BP 111/74
[2017-08-26] MEDS: DIGOXIN 0.25 MG TABLET PO SCH (08:54)
[2017-08-26] MEDS: OMEPRAZOLE 20 MG CAPSULE.DR PO SCH (08:54)
[2017-08-26] MEDS: DOXYCYCLINE 100MG TABLET PO SCH ×2 (08:54→21:17)
[2017-08-26] MEDS: SENNA/DOCUSATE TABLET PO SCH (08:56)
[2017-08-26 13:29] VITALS: BP 117/56
[2017-08-26] MEDS ORDERED: DIGOXIN 0.25 MG/ML, 2ML IVPush ONE (14:00)
[2017-08-26 16:40] VITALS: BP 118/61
[2017-08-26 21:15] VITALS: BP 115/69
[2017-08-27] MEDS: HEPARIN 5,000 UNITS/ML, 1ML SQ SCH ×2 (00:45→07:47)
[2017-08-27 03:00] VITALS: BP 143/77
[2017-08-27] MEDS: METOPROLOL TARTRATE 25 MG TABLET PO SCH (06:16)
[2017-08-27] MEDS: ASPIRIN 81 MG TABLET EC PO SCH (06:16)
[2017-08-27] MEDS: ALBUTEROL/IPRATROPIUM 2.5MG/0.5MG, 3 ML NPPB SCH ×2 (06:28→09:45)
[2017-08-27 07:43] VITALS: BP 110/69
[2017-08-27] MEDS: OMEPRAZOLE 20 MG CAPSULE.DR PO SCH (07:45)
[2017-08-27] MEDS: SENNA/DOCUSATE TABLET PO SCH (07:46)
[2017-08-27] MEDS ORDERED: REGADENOSON 0.4 MG/5 ML SYRINGE ONE (08:08)
[2017-08-27 10:47] VITALS: BP 114/61
[2017-08-27] MEDS: DOXYCYCLINE 100MG TABLET PO SCH (10:47)
[2017-08-27] MEDS: DIGOXIN 0.25 MG TABLET PO SCH (10:48)
[2017-08-27] MEDS ORDERED: DOXY100T PO (13:11)
[2017-08-27] MEDS ORDERED: PRED20TA PO (13:11)
[2017-08-27] MEDS ORDERED: METO25TA35 PO (13:11)
== END 2017-08-27 13:34 | disposition home or self-care (01) | DRG 302 ==
LOC: ED 23:59 → EDIP 08-25 01:15 → 5SO 08-25 09:56 → DCLOUNGE 08-27 13:30
PROVIDERS: ADMIT Internal Medicine; ATTEND Internal Medicine
DX: I25.10 Atherosclerotic heart disease of native coronary artery without angina pectoris (principal); J96.21 Acute and chronic respiratory failure with hypoxia; E46 Unspecified protein-calorie malnutrition; I27.20 Pulmonary hypertension, unspecified; J96.11 Chronic respiratory failure with hypoxia; D68.69 Other thrombophilia; I48.2 Chronic atrial fibrillation; I11.0 Hypertensive heart disease with heart failure; I50.32 Chronic diastolic (congestive) heart failure; J44.1 Chronic obstructive pulmonary disease with (acute) exacerbation; Z99.81 Dependence on supplemental oxygen; E05.90 Thyrotoxicosis, unspecified without thyrotoxic crisis or storm; I73.9 Peripheral vascular disease, unspecified; K21.9 Gastro-esophageal reflux disease without esophagitis; M06.9 Rheumatoid arthritis, unspecified; Z87.11 Personal history of peptic ulcer disease; Z87.891 Personal history of nicotine dependence; Z68.24 Body mass index [BMI] 24.0-24.9, adult
CPT/HCPCS: 36415; 71045; 71275; 78452; 80053; 80061; 80162; 81003; 83036; 83880; 84439; 84443; 84481; 84484; 85025; 93005; 93017; 93306; 94640; 96374; 96375; J1644; J2785; J7613; J7620; Q9967; A9502; C9898; J1160; J2930; J7030; J7512

== ENCOUNTER → 2018-11-23 | Outpatient (CLI) | payer MEDICARE ==
[~2018-11-23] MED LIST changes: +APIX5TAB PO; +ASPI-647 PO; +DOXY100T PO; +ELIQUIS; +FLONASE; -IPRA3AMP NEB; -IPRA3AMP NPPB; +IPRA3AMP30 NEB; +IPRA3AMP30 NPPB; -ONDA4VIA4 IVP; +ONDA4VIA60 IVP; +PRED20TA PO
== END | disposition home or self-care (01) ==
LOC: RAD 11:55
PROVIDERS: ATTEND Nurse Practitioner Family
DX: J18.9 Pneumonia, unspecified organism (principal)
CPT/HCPCS: 71046

== ENCOUNTER 2018-11-25 18:22 | Inpatient (IN) | payer MEDICARE ==
[~2018-11-25] VITALS: Ht 162.6 cm; Wt 60.2 kg
[~2018-11-25 18:22] MED LIST changes: -APIX5TAB PO; -ELIQUIS; -FLONASE
--- NOTE | 2018-11-25 18:35 | NUR ---
EKG DONE. GABRIEL CHAIR BROUGHT TO BS.
--- NOTE | 2018-11-25 18:42 | NUR ---
DR MIMS BS FOR EXAM. PT REPORTS SHE HAS AN UNKNOWN LUNG INFECTION. OBVIOUS DYSPNEA; LS TIGHT ALL LOGAN, CONGESTED COUGH NOTED.
--- NOTE | 2018-11-25 18:55 | NUR ---
CXR AT BS
[2018-11-25] MEDS ORDERED: methylPREDNISolone SOD SUCC 125 MG/2 ML ONE (18:57)
[2018-11-25] MEDS ORDERED: methylPREDNISolone SOD SUCC 125 MG/2 ML IVP ONE (19:00)
[2018-11-25] MEDS ORDERED: SODIUM CHLORIDE FLUSH 10ML SYR IVF ONE (19:00)
--- NOTE | 2018-11-25 19:03 | NUR ---
SOLUMEDROL GIVEN PER EMAR
--- NOTE | 2018-11-25 19:08 | NUR ---
RA O2 SAT 92%. O2 REAPPLIED: 3 LNC - SAT INCREASED TO 95%. O2 INCREASED TO 4LNC - SAT INCREASED TO 97%. PT ABLE TO SPEAK IN COMPLETE SENTENCES. CARDIAC & VS MONITORING CONINUING. HR VARIES 120'S TO 141.
[2018-11-25] MEDS ORDERED: ELIQUIS (19:16)
[2018-11-25] MEDS ORDERED: FLONASE (19:16)
[2018-11-25] MEDS ORDERED: APIX5TAB PO (19:21)
[2018-11-25] MEDS ORDERED: METO25TA35 PO (19:21)
--- NOTE | 2018-11-25 19:36 | NUR ---
REPORTS IMPROVEMENT IN BREATHING ABILITY. LAUNDRY OPERATOR FINISHING: A-FIB, RATE 111 - MID 120'S. LAB BS.
[2018-11-25 19:59] LABS: BASOPHILS # (AUTO) 0.02 x10^3/uL (0-0.1); BASOPHILS % (AUTO) 0 % (0-1); EOSINOPHILS # (AUTO) 0.03 x10^3/uL (0-0.4); EOSINOPHILS % (AUTO) 0 % (1-7); LYMPHOCYTES # (AUTO) 2.25 x10^3/uL (1-3.4); LYMPHOCYTES % (AUTO) 20 % (22-44); MD NO; MEAN CORPUSCULAR HEMOGLOBIN 27.9 pg (27.0-34.8); MEAN CORPUSCULAR HGB CONC 31.5 g/dL (32.4-35.8); MEAN CORPUSCULAR VOLUME 88.3 fL (80-100); MEAN PLATELET VOLUME 8.7 fL (7.4-10.4); MONOCYTES # (AUTO) 0.82 x10^3/uL (0.2-0.8); MONOCYTES % (AUTO) 7 % (2-9); NEUTROPHILS # (AUTO) 8.16 x10^3/uL (1.8-6.8); NEUTROPHILS % (AUTO) 72 % (42-75); PLATELET COUNT 384 x10^3/uL (130-400); RED BLOOD COUNT 4.26 x10^6/uL (3.82-5.3); RED CELL DISTRIBUTION WIDTH 13.8 % (9.6-15.2)
[2018-11-25 20:01] LABS: ALBUMIN 3.4 g/dL (3.4-5.0); ANION GAP 5 mmol/L (5-15); CALCIUM 9.2 mg/dL (8.5-10.1); CHLORIDE 100 mmol/L (98-107); CREATININE 0.68 mg/dL (0.55-1.02)
[2018-11-25 20:05] LABS: TROPONIN I 0.021 ng/mL (0.000-0.045)
--- NOTE | 2018-11-25 20:34 | NUR ---
SITTING UPRIGHT ON GURNEY, USING OWN COMPUTER, CHUCKLING AT WHAT SHE'S READING. REPORTS SLIGHT CHEST HEAVINESS. RESP EVEN. MONITORING CONTINUES. PT AWARE OF PENDING ADMISSION.
--- NOTE | 2018-11-25 21:17 | NUR ---
JANNET, CRITICAL CARE PA BS FOR EXAM.
--- NOTE | 2018-11-25 21:26 | NUR ---
PT REPORT TO ELAINE THOMPSON FOR ROOM 515
[2018-11-25] MEDS ORDERED: APIXABAN 5 MG TABLET ONE (21:27)
[2018-11-25] MEDS ORDERED: METOPROLOL TARTRATE 25 MG TABLET ONE (21:27)
[2018-11-25] MEDS: APIXABAN 5 MG TABLET PO SCH (21:29)
[2018-11-25] MEDS ORDERED: ACETAMINOPHEN 325 MG TABLET PO PRN (21:30)
[2018-11-25] MEDS ORDERED: ONDANSETRON ODT 4 MG PO PRN (21:30)
[2018-11-25] MEDS ORDERED: POLYETHYLENE GLYCOL 17 GM PACKET PO PRN (21:30)
[2018-11-25] MEDS ORDERED: BISACODYL 10 MG SUPP PR PRN (21:30)
[2018-11-25] MEDS ORDERED: MORPHINE SULFATE 4 MG/ML, 1ML IVPush PRN (21:30)
[2018-11-25] MEDS ORDERED: METOPROLOL TARTRATE 25 MG TABLET PO SCH (21:30)
[2018-11-25] MEDS ORDERED: NITROGLYCERIN 0.4 MG BOTTLE (25 TABS) SL PRN (21:30)
[2018-11-25] MEDS ORDERED: ALBUTEROL SULFATE 2.5 MG/3 ML ONE (22:12)
[2018-11-25] MEDS: DOXYCYCLINE 100MG TABLET PO SCH (22:27)
[2018-11-25] MEDS: SODIUM CHLORIDE FLUSH 10ML SYR IVF SCH (22:27)
[2018-11-25 22:45] LABS: FREE T4 (FREE THYROXINE) 2.14 ng/dL (0.76-1.46)
[2018-11-25 22:48] VITALS: BP 120/85
[2018-11-25 22:49] VITALS: BP 120/85
[2018-11-26 02:26] LABS: BASOPHILS % (AUTO) 0 % (0-1); EOSINOPHILS % (AUTO) 0 % (1-7); LYMPHOCYTES # (AUTO) 0.91 x10^3/uL (1-3.4); LYMPHOCYTES % (AUTO) 13 % (22-44); MD NO; MEAN CORPUSCULAR HEMOGLOBIN 27.4 pg (27.0-34.8); MEAN CORPUSCULAR HGB CONC 31.8 g/dL (32.4-35.8); MEAN CORPUSCULAR VOLUME 85.9 fL (80-100); MEAN PLATELET VOLUME 8.3 fL (7.4-10.4); MONOCYTES # (AUTO) 0.03 x10^3/uL (0.2-0.8); MONOCYTES % (AUTO) 0 % (2-9); NEUTROPHILS # (AUTO) 6.26 x10^3/uL (1.8-6.8); NEUTROPHILS % (AUTO) 87 % (42-75); PLATELET COUNT 363 x10^3/uL (130-400); RED BLOOD COUNT 4.16 x10^6/uL (3.82-5.3); RED CELL DISTRIBUTION WIDTH 13.8 % (9.6-15.2)
[2018-11-26 02:33] LABS: ALANINE AMINOTRANSFERASE 26 U/L (12-78); ALBUMIN 3.2 g/dL (3.4-5.0); ANION GAP 6 mmol/L (5-15); CHLORIDE 99 mmol/L (98-107); CREATININE 0.94 mg/dL (0.55-1.02)
[2018-11-26 02:36] LABS: ALKALINE PHOSPHATASE 110 U/L (45-117); BILIRUBIN,TOTAL 0.2 mg/dL (0.2-1.0); CHOL/HDL RATIO 2.5; CHOLESTEROL, TOTAL 151 mg/dL (140-239); HDL CHOL % 40 % (28-40); HDL CHOLESTEROL (DIRECT) 60 mg/dL (40-60); LDL CHOLESTEROL,CALCULATED 82 mg/dL (54-169); LDL/HDL RATIO 1.4 (0.5-3.0); TOTAL PROTEIN 7.8 g/dL (6.4-8.2); TRIGLYCERIDES 47 mg/dL (50-200); VLDL CHOLESTEROL 9 mg/dL (0-25)
[2018-11-26 02:40] LABS: TROPONIN I 0.025 ng/mL (0.000-0.045)
[2018-11-26 03:20] VITALS: BP 112/63
[2018-11-26] MEDS: ASPIRIN 81 MG TABLET EC PO SCH (05:44)
[2018-11-26 07:58] LABS: TROPONIN I 0.024 ng/mL (0.000-0.045)
[2018-11-26 08:11] VITALS: BP 117/64
[2018-11-26 08:18] VITALS: BP 116/77
[2018-11-26] MEDS: METOPROLOL TARTRATE 50 MG TABLET PO SCH ×2 (08:19→20:41)
[2018-11-26] MEDS: DOXYCYCLINE 100MG TABLET PO SCH (08:19)
[2018-11-26] MEDS: SODIUM CHLORIDE FLUSH 10ML SYR IVF SCH ×2 (08:19→20:42)
[2018-11-26] MEDS: SENNA/DOCUSATE TABLET PO SCH (08:20)
[2018-11-26] MEDS: OMEPRAZOLE 20 MG CAPSULE.DR PO SCH (08:22)
[2018-11-26] MEDS: APIXABAN 5 MG TABLET PO SCH ×2 (08:22→20:41)
[2018-11-26] MEDS: ALBUTEROL SULFATE 2.5 MG/3 ML NPPB SCH ×2 (09:35→21:28)
[2018-11-26] MEDS: BUDESONIDE 0.5 MG/2 ML INHA NPPB SCH ×2 (09:35→21:28)
[2018-11-26] MEDS: DIGOXIN 0.125 MG TABLET PO SCH (15:05)
[2018-11-26 20:34] VITALS: BP 103/46
[2018-11-26 21:20] VITALS: BP 129/67
[2018-11-27 01:28] VITALS: BP 95/62
[2018-11-27 05:32] VITALS: BP 108/73
[2018-11-27] MEDS: ASPIRIN 81 MG TABLET EC PO SCH (05:41)
[2018-11-27] MEDS: OMEPRAZOLE 20 MG CAPSULE.DR PO SCH (05:41)
[2018-11-27 06:05] VITALS: BP 119/86
[2018-11-27 06:42] VITALS: BP 110/51
[2018-11-27] MEDS: DIGOXIN 0.125 MG TABLET PO SCH (08:55)
[2018-11-27] MEDS: METOPROLOL TARTRATE 50 MG TABLET PO SCH ×2 (08:55→21:48)
[2018-11-27] MEDS: APIXABAN 5 MG TABLET PO SCH ×2 (08:55→21:48)
[2018-11-27] MEDS: SENNA/DOCUSATE TABLET PO SCH (08:56)
[2018-11-27] MEDS: SODIUM CHLORIDE FLUSH 10ML SYR IVF SCH ×2 (09:00→21:48)
[2018-11-27] MEDS: BUDESONIDE 0.5 MG/2 ML INHA NPPB SCH ×2 (09:00→20:53)
[2018-11-27] MEDS: ALBUTEROL SULFATE 2.5 MG/3 ML NPPB SCH ×2 (09:00→20:53)
[2018-11-27] MEDS ORDERED: DIGOXIN 0.125 MG TABLET PO ONE (09:00)
[2018-11-27 14:08] VITALS: BP 115/71
[2018-11-27 20:42] VITALS: BP 115/57
[2018-11-28 02:05] VITALS: BP 105/75
[2018-11-28] MEDS: OMEPRAZOLE 20 MG CAPSULE.DR PO SCH (05:29)
[2018-11-28] MEDS: ASPIRIN 81 MG TABLET EC PO SCH (05:29)
[2018-11-28 07:54] VITALS: BP 91/44
[2018-11-28] MEDS: BUDESONIDE 0.5 MG/2 ML INHA NPPB SCH (08:10)
[2018-11-28] MEDS: ALBUTEROL SULFATE 2.5 MG/3 ML NPPB SCH (08:12)
[2018-11-28] MEDS: SENNA/DOCUSATE TABLET PO SCH ×2 (08:52→09:00)
[2018-11-28] MEDS: METOPROLOL TARTRATE 50 MG TABLET PO SCH (08:53)
[2018-11-28] MEDS: DIGOXIN 0.125 MG TABLET PO SCH (08:54)
[2018-11-28] MEDS: APIXABAN 5 MG TABLET PO SCH (08:54)
[2018-11-28 08:55] VITALS: BP 112/78
[2018-11-28] MEDS: SODIUM CHLORIDE FLUSH 10ML SYR IVF SCH (08:55)
[2018-11-28] MEDS ORDERED: METO-99 PO (13:06)
[2018-11-28] MEDS ORDERED: DIGO125T PO (13:06)
== END 2018-11-28 14:20 | disposition home or self-care (01) | DRG 309 ==
LOC: ED 20:48 → EDIP 20:50 → 5SO 21:52 → DCLOUNGE 11-28 13:50
PROVIDERS: ADMIT Family Medicine; ATTEND Family Medicine
DX: I48.91 Unspecified atrial fibrillation (principal); D68.69 Other thrombophilia; J96.11 Chronic respiratory failure with hypoxia; I27.20 Pulmonary hypertension, unspecified; E03.9 Hypothyroidism, unspecified; E05.90 Thyrotoxicosis, unspecified without thyrotoxic crisis or storm; I11.0 Hypertensive heart disease with heart failure; I25.2 Old myocardial infarction; I50.9 Heart failure, unspecified; I73.9 Peripheral vascular disease, unspecified; K21.9 Gastro-esophageal reflux disease without esophagitis; I25.9 Chronic ischemic heart disease, unspecified; J43.9 Emphysema, unspecified; M06.9 Rheumatoid arthritis, unspecified; Z79.01 Long term (current) use of anticoagulants; Z82.61 Family history of arthritis; Z87.11 Personal history of peptic ulcer disease; Z87.891 Personal history of nicotine dependence; Z99.81 Dependence on supplemental oxygen; G62.9 Polyneuropathy, unspecified
CPT/HCPCS: 36415; 71045; 80048; 80053; 80061; 82040; 83880; 84439; 84443; 84481; 84484; 85025; 93005; 93306; 94640; 99285; G0378; J7613; J7626; J2930

== ENCOUNTER 2019-06-04 23:20 | Emergency (ER) | payer MEDICARE ==
[~2019-06-04] VITALS: Ht 162.6 cm; Wt 68.0 kg
[~2019-06-04 23:20] MED LIST changes: +APIX5TAB PO; +DIGO125T PO; +DILT120C48 PO; -DILT120C9 PO; +ELIQUIS; +FLONASE; +METO-99 PO; +OMEP40CA42 PO; -OMEP40CA6 PO
[2019-06-04 23:26] VITALS: BP 135/50
== END 2019-06-05 01:30 | disposition home or self-care (01) ==
LOC: ED 06-05 01:20
DX: K05.00 Acute gingivitis, plaque induced (principal); K06.8 Other specified disorders of gingiva and edentulous alveolar ridge; K02.9 Dental caries, unspecified; I25.2 Old myocardial infarction; E03.9 Hypothyroidism, unspecified; J44.9 Chronic obstructive pulmonary disease, unspecified; I11.0 Hypertensive heart disease with heart failure; I50.9 Heart failure, unspecified
CPT/HCPCS: 99281

== ENCOUNTER 2019-10-04 12:28 | Inpatient (IN) | payer MEDICARE ==
[~2019-10-04] VITALS: Ht 162.6 cm; Wt 67.9 kg
[~2019-10-04 12:28] MED LIST changes: -DIGO125T PO; +DIGO125T85 PO; -DIGO250T PO; +DIGO250T3 PO
[2019-10-04] MEDS ORDERED: methylPREDNISolone SOD SUCC 125 MG/2 ML ONE (12:41)
[2019-10-04] MEDS ORDERED: SODIUM CHLORIDE FLUSH 10ML SYR IVF ONE (13:00)
[2019-10-04] MEDS ORDERED: methylPREDNISolone SOD SUCC 125 MG/2 ML IV ONE (13:00)
--- NOTE | 2019-10-04 13:05 | NUR ---
PT PLACED ON BEDPAN. PT BECAME MORE SOB WITH MOVEMENT AND FELT LIKE SHE COULDN'T BREATHE, O2 INCREASED TO 4L WHICH IS PTS BASELINE.
[2019-10-04 13:21] LABS: BASOPHILS # (AUTO) 0.02 x10^3/uL (0-0.1); BASOPHILS % (AUTO) 0 % (0-1); EOSINOPHILS # (AUTO) 0.51 x10^3/uL (0-0.4); EOSINOPHILS % (AUTO) 7 % (1-7); LYMPHOCYTES # (AUTO) 2.13 x10^3/uL (1-3.4); LYMPHOCYTES % (AUTO) 28 % (22-44); MD NO; MEAN CORPUSCULAR HEMOGLOBIN 28.8 pg (27.0-34.8); MEAN CORPUSCULAR HGB CONC 32.3 g/dL (32.4-35.8); MEAN CORPUSCULAR VOLUME 89.2 fL (80-100); MONOCYTES # (AUTO) 0.66 x10^3/uL (0.2-0.8); MONOCYTES % (AUTO) 9 % (2-9); NEUTROPHILS # (AUTO) 4.25 x10^3/uL (1.8-6.8); NEUTROPHILS % (AUTO) 56 % (42-75); PLATELET COUNT 256 x10^3/uL (130-400); RED BLOOD COUNT 3.82 x10^6/uL (3.82-5.3); RED CELL DISTRIBUTION WIDTH 13.7 % (9.6-15.2)
[2019-10-04 13:32] LABS: ALANINE AMINOTRANSFERASE 25 U/L (12-78); ALBUMIN 3.3 g/dL (3.4-5.0); ANION GAP 6 mmol/L (5-15); CALCIUM 8.8 mg/dL (8.5-10.1); CHLORIDE 103 mmol/L (98-107)
[2019-10-04 13:37] LABS: ALKALINE PHOSPHATASE 108 U/L (45-117); BILIRUBIN,TOTAL 0.3 mg/dL (0.2-1.0); CREATININE 0.67 mg/dL (0.55-1.02); TOTAL PROTEIN 7.9 g/dL (6.4-8.2); TROPONIN I 0.093 ng/mL (0.000-0.045)
--- NOTE | 2019-10-04 13:48 | NUR ---
RECEIVED BEDSIDE REPORT FROM ELAINE ELAM. PT ARRIVED VIA EMS ON CPAP, PT NOW ON 4 LPM NASAL CANNULA. PT WEARS 4 LPM AT HOME. PT HAS RECEIVED SOLUMEDROL AND NEB TREATMENTS. PT RESTING ON GURNEY. MONET.
[2019-10-04] MEDS ORDERED: ONDANSETRON ODT 4 MG PO PRN (15:00)
[2019-10-04] MEDS ORDERED: ACETAMINOPHEN 325 MG TABLET PO PRN (15:00)
[2019-10-04] MEDS ORDERED: ENOXAPARIN 40 MG/0.4 ML SQ SCH (15:00)
[2019-10-04] MEDS ORDERED: MORPHINE SULFATE 4 MG/ML, 1ML IVPush PRN (15:00)
[2019-10-04] MEDS ORDERED: ONDANSETRON 2MG/ML, 2ML IVPush PRN (15:00)
--- NOTE | 2019-10-04 15:14 | NUR ---
PT RESTING ON [facility]. HOSPITALIST HAS BEEN BEDSIDE. NADN. NO NEEDS REQUESTED AT THIS TIME.
--- NOTE | 2019-10-04 15:23 | NUR ---
REPORT TO ELAINE MAKI. ALL QUESTIONS ANSWERED.
--- NOTE | 2019-10-04 15:42 | NUR ---
PT TRANSFERRED TO FLOOR. PT LEFT WITH ALL PERSONAL BELONGINGS.
[2019-10-04] MEDS ORDERED: ALBUTEROL/IPRATROPIUM 2.5MG/0.5MG, 3 ML NPPB SCH (16:00)
[2019-10-04] MEDS ORDERED: ALBUTEROL/IPRATROPIUM 2.5MG/0.5MG, 3 ML NPPB PRN ×2 (16:00→16:30)
[2019-10-04] MEDS: methylPREDNISolone SOD SUCC 125 MG/2 ML IVPush SCH ×2 (16:13→21:25)
[2019-10-04 16:27] VITALS: BP 109/82
[2019-10-04] MEDS ORDERED: DILTIAZEM 125 MG in SODIUM CHLORIDE 0.9% 100 ML IV SCH (16:30)
[2019-10-04] MEDS ORDERED: DIGOXIN 0.25 MG/ML, 2ML IVPush ONE (16:30)
[2019-10-04] MEDS: BENZONATATE 100 MG CAPSULE PO SCH ×2 (16:33→21:25)
[2019-10-04] MEDS: ALBUTEROL/IPRATROPIUM 2.5MG/0.5MG, 3 ML NPPB SCH ×2 (18:26→22:26)
[2019-10-04 19:13] LABS: TROPONIN I 0.093 ng/mL (0.000-0.045)
[2019-10-04 21:20] VITALS: BP 105/50
[2019-10-04] MEDS: DOXYCYCLINE 100MG TABLET PO SCH (21:25)
[2019-10-04] MEDS: FAMOTIDINE 20 MG TABLET PO SCH (21:25)
[2019-10-04] MEDS: GUAIFENESIN ER 600 MG TABLET PO SCH (21:25)
[2019-10-04] MEDS: METOPROLOL TARTRATE 100 MG TAB PO SCH (21:26)
[2019-10-04] MEDS: APIXABAN 5 MG TABLET PO SCH (21:26)
[2019-10-05 00:30] VITALS: BP 107/49
[2019-10-05 01:20] LABS: BASOPHILS % (AUTO) 0 % (0-1); EOSINOPHILS % (AUTO) 0 % (1-7); LYMPHOCYTES # (AUTO) 0.68 x10^3/uL (1-3.4); LYMPHOCYTES % (AUTO) 13 % (22-44); MD NO; MEAN CORPUSCULAR HEMOGLOBIN 28.4 pg (27.0-34.8); MEAN CORPUSCULAR VOLUME 88.7 fL (80-100); MONOCYTES # (AUTO) 0.02 x10^3/uL (0.2-0.8); MONOCYTES % (AUTO) 0 % (2-9); NEUTROPHILS # (AUTO) 4.64 x10^3/uL (1.8-6.8); NEUTROPHILS % (AUTO) 87 % (42-75); PLATELET COUNT 245 x10^3/uL (130-400); RED BLOOD COUNT 3.81 x10^6/uL (3.82-5.3); RED CELL DISTRIBUTION WIDTH 13.4 % (9.6-15.2)
[2019-10-05 01:21] LABS: ALBUMIN 3.3 g/dL (3.4-5.0); ANION GAP 3 mmol/L (5-15); CALCIUM 9.1 mg/dL (8.5-10.1); CHLORIDE 99 mmol/L (98-107)
[2019-10-05 01:29] LABS: TROPONIN I 0.093 ng/mL (0.000-0.045)
[2019-10-05 01:36] LABS: ALANINE AMINOTRANSFERASE 24 U/L (12-78); ALKALINE PHOSPHATASE 100 U/L (45-117); BILIRUBIN,TOTAL 0.4 mg/dL (0.2-1.0); CHOLESTEROL, TOTAL 152 mg/dL (140-239); CREATININE 0.64 mg/dL (0.55-1.02); HDL CHOL % 49 % (28-40); HDL CHOLESTEROL (DIRECT) 75 mg/dL (40-60); LDL CHOLESTEROL,CALCULATED 71 mg/dL (54-169); LDL/HDL RATIO 0.9 (0.5-3.0); TOTAL PROTEIN 7.8 g/dL (6.4-8.2); TRIGLYCERIDES 32 mg/dL (50-200); VLDL CHOLESTEROL 6 mg/dL (0-25)
[2019-10-05] MEDS: ALBUTEROL/IPRATROPIUM 2.5MG/0.5MG, 3 ML NPPB SCH ×6 (02:13→22:35)
[2019-10-05] MEDS: methylPREDNISolone SOD SUCC 125 MG/2 ML IVPush SCH ×3 (03:25→19:26)
[2019-10-05 07:03] VITALS: BP 105/70
[2019-10-05] MEDS: FAMOTIDINE 20 MG TABLET PO SCH ×3 (09:00→21:43)
[2019-10-05 09:10] VITALS: BP 105/67
[2019-10-05] MEDS: DOXYCYCLINE 100MG TABLET PO SCH ×2 (09:16→21:43)
[2019-10-05] MEDS: METOPROLOL TARTRATE 100 MG TAB PO SCH ×2 (09:16→21:51)
[2019-10-05] MEDS: OMEPRAZOLE 20 MG CAPSULE.DR PO SCH (09:16)
[2019-10-05] MEDS: BENZONATATE 100 MG CAPSULE PO SCH ×3 (09:16→21:43)
[2019-10-05] MEDS: GUAIFENESIN ER 600 MG TABLET PO SCH ×2 (09:16→21:43)
[2019-10-05] MEDS: APIXABAN 5 MG TABLET PO SCH ×2 (09:17→21:43)
[2019-10-05] MEDS: DIGOXIN 0.125 MG TABLET PO SCH (09:17)
[2019-10-05 13:49] VITALS: BP 108/61
[2019-10-05 15:19] LABS: TROPONIN I 0.077 ng/mL (0.000-0.045)
[2019-10-05] MEDS: FLUTICASONE NASAL SPRAY 16GM NAS SCH ×2 (16:30→21:42)
[2019-10-05 21:50] VITALS: BP 125/77
[2019-10-06 02:37] VITALS: BP 126/78
[2019-10-06] MEDS: methylPREDNISolone SOD SUCC 125 MG/2 ML IVPush SCH ×2 (02:38→15:31)
[2019-10-06] MEDS: ALBUTEROL/IPRATROPIUM 2.5MG/0.5MG, 3 ML NPPB SCH ×6 (03:20→23:00)
[2019-10-06 07:17] VITALS: BP 129/60
[2019-10-06] MEDS: DOXYCYCLINE 100MG TABLET PO SCH ×2 (08:08→20:32)
[2019-10-06] MEDS: DIGOXIN 0.125 MG TABLET PO SCH (08:08)
[2019-10-06] MEDS: FLUTICASONE NASAL SPRAY 16GM NAS SCH ×2 (08:08→20:33)
[2019-10-06] MEDS: OMEPRAZOLE 20 MG CAPSULE.DR PO SCH (08:08)
[2019-10-06] MEDS: APIXABAN 5 MG TABLET PO SCH ×2 (08:08→20:32)
[2019-10-06] MEDS: GUAIFENESIN ER 600 MG TABLET PO SCH ×2 (08:09→20:32)
[2019-10-06] MEDS: BENZONATATE 100 MG CAPSULE PO SCH ×3 (08:09→20:32)
[2019-10-06] MEDS: METOPROLOL TARTRATE 100 MG TAB PO SCH ×2 (08:09→20:32)
[2019-10-06] MEDS ORDERED: SODIUM CHLORIDE 0.9% 1,000 ML IV SCH ×2 (08:30)
[2019-10-06 13:22] VITALS: BP 135/84
[2019-10-06 18:22] VITALS: BP 128/77
[2019-10-06] MEDS: FAMOTIDINE 20 MG TABLET PO SCH (20:32)
[2019-10-07 00:50] VITALS: BP 138/86
[2019-10-07] MEDS: ALBUTEROL/IPRATROPIUM 2.5MG/0.5MG, 3 ML NPPB SCH ×3 (03:09→10:50)
[2019-10-07] MEDS: methylPREDNISolone SOD SUCC 125 MG/2 ML IVPush SCH (03:16)
[2019-10-07 06:45] VITALS: BP 136/78
[2019-10-07] MEDS: DOXYCYCLINE 100MG TABLET PO SCH (08:19)
[2019-10-07] MEDS: METOPROLOL TARTRATE 100 MG TAB PO SCH (08:19)
[2019-10-07] MEDS: DIGOXIN 0.125 MG TABLET PO SCH (08:19)
[2019-10-07] MEDS: GUAIFENESIN ER 600 MG TABLET PO SCH (08:19)
[2019-10-07] MEDS: BENZONATATE 100 MG CAPSULE PO SCH (08:19)
[2019-10-07] MEDS: APIXABAN 5 MG TABLET PO SCH (08:19)
[2019-10-07] MEDS: OMEPRAZOLE 20 MG CAPSULE.DR PO SCH (08:19)
[2019-10-07] MEDS: FLUTICASONE NASAL SPRAY 16GM NAS SCH (08:20)
[2019-10-07] MEDS ORDERED: PRED10TA PO (13:09)
[2019-10-07] MEDS ORDERED: GUAI600T31 PO (13:09)
[2019-10-07] MEDS ORDERED: DOXY100T PO (13:09)
== END 2019-10-07 14:30 | disposition home or self-care (01) | DRG 189 ==
LOC: ED 13:40 → EDIP 13:45 → 4WST 15:43 → DCLOUNGE 10-07 14:23
PROVIDERS: ADMIT Family Medicine; ATTEND Family Medicine
DX: J96.21 Acute and chronic respiratory failure with hypoxia (principal); R65.10 Systemic inflammatory response syndrome (SIRS) of non-infectious origin without acute organ dysfunction; D68.69 Other thrombophilia; E87.1 Hypo-osmolality and hyponatremia; I24.8 Other forms of acute ischemic heart disease; I48.20 Chronic atrial fibrillation, unspecified; J44.1 Chronic obstructive pulmonary disease with (acute) exacerbation; J44.0 Chronic obstructive pulmonary disease with (acute) lower respiratory infection; D64.9 Anemia, unspecified; E03.9 Hypothyroidism, unspecified; I11.0 Hypertensive heart disease with heart failure; I27.20 Pulmonary hypertension, unspecified; I50.9 Heart failure, unspecified; I73.9 Peripheral vascular disease, unspecified; M06.9 Rheumatoid arthritis, unspecified; E83.42 Hypomagnesemia; Z79.01 Long term (current) use of anticoagulants; Z82.49 Family history of ischemic heart disease and other diseases of the circulatory system; Z82.61 Family history of arthritis; Z87.11 Personal history of peptic ulcer disease; Z99.81 Dependence on supplemental oxygen; Z90.89 Acquired absence of other organs; Z88.0 Allergy status to penicillin; Z88.5 Allergy status to narcotic agent; Z91.013 Allergy to seafood; J20.9 Acute bronchitis, unspecified
CPT/HCPCS: 36415; 36600; 71045; 80053; 80061; 80162; 82803; 84439; 84443; 84484; 85025; 93005; 93306; 94640; 99291; G0378; J1160; J2930; J7030

== ENCOUNTER 2019-12-05 17:03 | Inpatient (IN) | payer MEDICARE ==
[~2019-12-05] VITALS: Ht 175.3 cm; Wt 70.6 kg
[~2019-12-05 17:03] MED LIST changes: +GUAI600T31 PO; +PRED10TA PO
--- NOTE | 2019-12-05 17:06 | NUR ---
RT PAGED. BIPAP NEEDED FOR THIS PT AT THIS TIME.
[2019-12-05] MEDS ORDERED: SODIUM CHLORIDE 0.9% 1,000 ML IV ONE (17:09)
--- NOTE | 2019-12-05 17:44 | NUR ---
PT PLACED ON OXYMASK AND RESPONDING BETTER. PT NO LONGER TACHYPNEIC OR DIFFICULTY WITH WOB. PT RESTING COMFORTABLY IN GURNEY AT THIS TIME WITH CALL LIGHT WITHIN REACH. PT ON VS AND CARDIAC MONITORS. VSS AT THIS TIME. ERP UPDATED ON PT CONDITION AND VERBALIZES NEED TO MONITOR PT CLOSELY FOR RESPIRATORY DISTRESS. NO NEW ORDERS RECEIVED AT THIS TIME.
[2019-12-05 17:53] LABS: BASOPHILS # (AUTO) 0.03 x10^3/uL (0-0.1); BASOPHILS % (AUTO) 0 % (0-1); EOSINOPHILS # (AUTO) 0.64 x10^3/uL (0-0.4); EOSINOPHILS % (AUTO) 8 % (1-7); LYMPHOCYTES # (AUTO) 2.33 x10^3/uL (1-3.4); LYMPHOCYTES % (AUTO) 30 % (22-44); MD NO; MEAN CORPUSCULAR HEMOGLOBIN 28.7 pg (27.0-34.8); MEAN CORPUSCULAR HGB CONC 32.2 g/dL (32.4-35.8); MEAN PLATELET VOLUME 9.1 fL (7.4-10.4); MONOCYTES # (AUTO) 0.73 x10^3/uL (0.2-0.8); MONOCYTES % (AUTO) 9 % (2-9); NEUTROPHILS # (AUTO) 4.11 x10^3/uL (1.8-6.8); NEUTROPHILS % (AUTO) 52 % (42-75); PLATELET COUNT 279 x10^3/uL (130-400); RED BLOOD COUNT 4.33 x10^6/uL (3.82-5.3); RED CELL DISTRIBUTION WIDTH 13.8 % (9.6-15.2)
[2019-12-05 17:59] LABS: ALBUMIN 3.5 g/dL (3.4-5.0); ANION GAP 6 mmol/L (5-15); CALCIUM 8.7 mg/dL (8.5-10.1); CHLORIDE 97 mmol/L (98-107); CREATININE 0.67 mg/dL (0.55-1.02)
[2019-12-05 18:03] LABS: TROPONIN I 0.048 ng/mL (0.000-0.045)
[2019-12-05] MEDS ORDERED: MELATONIN 5 MG TABLET PO PRN (20:00)
[2019-12-05] MEDS ORDERED: ENOXAPARIN 40 MG/0.4 ML SQ SCH (20:00)
[2019-12-05] MEDS ORDERED: POLYETHYLENE GLYCOL 17 GM PACKET PO PRN (20:00)
[2019-12-05] MEDS ORDERED: DOCUSATE 100 MG CAPSULE PO PRN (20:00)
[2019-12-05] MEDS ORDERED: ACETAMINOPHEN 325 MG TABLET PO PRN (20:00)
[2019-12-05] MEDS ORDERED: DOXYCYCLINE 100MG TABLET PO ONE (20:00)
[2019-12-05] MEDS ORDERED: hydrALAzine 20 MG/ML, 1ML IVPush PRN (20:00)
[2019-12-05] MEDS ORDERED: BISACODYL 10 MG SUPP PR PRN (20:00)
[2019-12-05] MEDS ORDERED: ONDANSETRON 2MG/ML, 2ML IVPush PRN (20:00)
[2019-12-05] MEDS ORDERED: GUAIFENESIN/DM 200-20MG, 10ML UDC PO PRN (20:00)
[2019-12-05] MEDS ORDERED: PROMETHAZINE 25 MG/ML, 1ML IM PRN (20:00)
[2019-12-05] MEDS ORDERED: morphine SULFATE 10 MG/ML, 1ML IVPush PRN (20:00)
[2019-12-05 20:47] LABS: CREATINE KINASE, TOTAL 100 U/L (26-192); TROPONIN I 0.056 ng/mL (0.000-0.045)
--- NOTE | 2019-12-05 21:04 | NUR ---
REPORT OF PT TO ELAINE COHEN WHO IS ASSUMING CARE OF PT AT THIS TIME. ALL QUESTIONS ANSWERED. PT VERBALIZES UNDERSTANDING OF ADMISSION AND ROOM ASSINGMENT. ALL QUESTIONS ANSWERED. TECH PAGED FOR TRANSPORT OF PT FROM ROOM TO FLOOR.
[2019-12-05 21:57] VITALS: BP 118/85
[2019-12-05] MEDS ORDERED: GUAIFENESIN ER 600 MG TABLET ONE (22:26)
[2019-12-05] MEDS ORDERED: METOPROLOL TARTRATE 100 MG TAB ONE (22:26)
[2019-12-05] MEDS ORDERED: methylPREDNISolone SOD SUCC 125 MG/2 ML ONE (22:26)
[2019-12-05] MEDS ORDERED: APIXABAN 5 MG TABLET ONE (22:27)
[2019-12-05] MEDS: FAMOTIDINE 20 MG TABLET PO SCH (22:33)
[2019-12-05] MEDS: APIXABAN 5 MG TABLET PO SCH (22:33)
[2019-12-05] MEDS: methylPREDNISolone SOD SUCC 125 MG/2 ML IVPush SCH (22:33)
[2019-12-05] MEDS: METOPROLOL TARTRATE 100 MG TAB PO SCH (22:34)
[2019-12-05] MEDS: GUAIFENESIN ER 600 MG TABLET PO SCH (22:34)
[2019-12-06] MEDS: ALBUTEROL HFA 90 MCG/SPRAY INH PRN ×2 (00:40→04:36)
[2019-12-06 00:41] VITALS: BP 119/52
[2019-12-06] MEDS: methylPREDNISolone SOD SUCC 125 MG/2 ML IVPush SCH ×4 (02:15→19:50)
[2019-12-06 04:43] LABS: BASOPHILS # (AUTO) 0.01 x10^3/uL (0-0.1); BASOPHILS % (AUTO) 0 % (0-1); EOSINOPHILS # (AUTO) 0.01 x10^3/uL (0-0.4); EOSINOPHILS % (AUTO) 0 % (1-7); LYMPHOCYTES # (AUTO) 0.83 x10^3/uL (1-3.4); LYMPHOCYTES % (AUTO) 15 % (22-44); MD NO; MEAN CORPUSCULAR HEMOGLOBIN 28.5 pg (27.0-34.8); MEAN CORPUSCULAR HGB CONC 31.6 g/dL (32.4-35.8); MEAN PLATELET VOLUME 9.3 fL (7.4-10.4); MONOCYTES # (AUTO) 0.04 x10^3/uL (0.2-0.8); MONOCYTES % (AUTO) 1 % (2-9); NEUTROPHILS # (AUTO) 4.83 x10^3/uL (1.8-6.8); NEUTROPHILS % (AUTO) 85 % (42-75); PLATELET COUNT 284 x10^3/uL (130-400); RED BLOOD COUNT 4.28 x10^6/uL (3.82-5.3)
[2019-12-06 04:49] LABS: ANION GAP 4 mmol/L (5-15); CALCIUM 8.8 mg/dL (8.5-10.1); CHLORIDE 101 mmol/L (98-107); CREATININE 0.69 mg/dL (0.55-1.02)
[2019-12-06 04:53] LABS: CREATINE KINASE, TOTAL 116 U/L (26-192); FREE T4 (FREE THYROXINE) 1.66 ng/dL (0.76-1.46); TROPONIN I 0.068 ng/mL (0.000-0.045)
[2019-12-06] MEDS: ALBUTEROL-IPRATROPIUM MDI INH INH SCH ×4 (07:00→19:51)
[2019-12-06] MEDS: GUAIFENESIN ER 600 MG TABLET PO SCH ×2 (08:33→19:51)
[2019-12-06] MEDS: OMEPRAZOLE 20 MG CAPSULE.DR PO SCH (08:33)
[2019-12-06] MEDS: FAMOTIDINE 20 MG TABLET PO SCH ×2 (08:34→19:51)
[2019-12-06] MEDS: DIGOXIN 0.125 MG TABLET PO SCH (08:34)
[2019-12-06] MEDS: APIXABAN 5 MG TABLET PO SCH ×2 (08:34→19:50)
[2019-12-06] MEDS: METOPROLOL TARTRATE 100 MG TAB PO SCH ×2 (08:34→19:50)
[2019-12-06 08:35] VITALS: BP 105/70
[2019-12-06] MEDS: BENZONATATE 100 MG CAPSULE PO SCH ×3 (11:10→19:51)
[2019-12-06] MEDS: DOXYCYCLINE 100 MG in DEXTROSE 5% 250 ML IV SCH ×2 (11:25→23:03)
[2019-12-06] MEDS ORDERED: CEFTRIAXONE PMX 1GM/50ML 50 ML IV SCH (11:30)
[2019-12-06 13:09] VITALS: BP 105/58
[2019-12-06 16:25] LABS: TROPONIN I 0.062 ng/mL (0.000-0.045)
[2019-12-06 18:25] VITALS: BP 106/65
[2019-12-06 21:38] LABS: TROPONIN I 0.055 ng/mL (0.000-0.045)
[2019-12-07 01:29] VITALS: BP 108/72
[2019-12-07] MEDS: methylPREDNISolone SOD SUCC 125 MG/2 ML IVPush SCH ×2 (02:00→08:52)
[2019-12-07] MEDS: ALBUTEROL HFA 90 MCG/SPRAY INH PRN ×2 (04:24→09:21)
[2019-12-07 04:41] LABS: MEAN CORPUSCULAR HEMOGLOBIN 28.6 pg (27.0-34.8); MEAN CORPUSCULAR HGB CONC 31.7 g/dL (32.4-35.8); MEAN PLATELET VOLUME 9.6 fL (7.4-10.4); PLATELET COUNT 237 x10^3/uL (130-400); RED BLOOD COUNT 4.17 x10^6/uL (3.82-5.3); RED CELL DISTRIBUTION WIDTH 14.2 % (9.6-15.2)
[2019-12-07 04:48] LABS: ANION GAP 6 mmol/L (5-15); CHLORIDE 100 mmol/L (98-107); CREATININE 0.56 mg/dL (0.55-1.02)
[2019-12-07 04:49] LABS: CALCIUM 8.6 mg/dL (8.5-10.1)
[2019-12-07 05:49] LABS: BASOPHILS % (AUTO) 0 % (0-1); EOSINOPHILS % (AUTO) 0 % (1-7); LYMPHOCYTES # (AUTO) 0.88 x10^3/uL (1-3.4); LYMPHOCYTES % (AUTO) 7 % (22-44); MD SCAN; MONOCYTES # (AUTO) 0.14 x10^3/uL (0.2-0.8); MONOCYTES % (AUTO) 1 % (2-9); NEUTROPHILS # (AUTO) 11.65 x10^3/uL (1.8-6.8); NEUTROPHILS % (AUTO) 92 % (42-75)
[2019-12-07 08:46] VITALS: BP 110/65
[2019-12-07] MEDS: ALBUTEROL-IPRATROPIUM MDI INH INH SCH ×2 (08:50→11:00)
[2019-12-07] MEDS: METOPROLOL TARTRATE 100 MG TAB PO SCH (08:51)
[2019-12-07] MEDS: APIXABAN 5 MG TABLET PO SCH (08:51)
[2019-12-07] MEDS: FAMOTIDINE 20 MG TABLET PO SCH (08:51)
[2019-12-07] MEDS: OMEPRAZOLE 20 MG CAPSULE.DR PO SCH (08:51)
[2019-12-07] MEDS: GUAIFENESIN ER 600 MG TABLET PO SCH (08:51)
[2019-12-07] MEDS: BENZONATATE 100 MG CAPSULE PO SCH (08:51)
[2019-12-07] MEDS: DIGOXIN 0.125 MG TABLET PO SCH (08:52)
[2019-12-07] MEDS ORDERED: PRED10TA PO (09:56)
[2019-12-07] MEDS ORDERED: DOXY100T PO (09:56)
[2019-12-07] MEDS: DOXYCYCLINE 100 MG in DEXTROSE 5% 250 ML IV SCH (11:00)
== END 2019-12-07 11:50 | disposition home or self-care (01) | DRG 190 ==
LOC: ED 17:33 → EDIP 22:07 → 4WST 22:24 → DCLOUNGE 12-07 11:40
PROVIDERS: ADMIT Internal Medicine; ATTEND Internal Medicine
DX: J44.1 Chronic obstructive pulmonary disease with (acute) exacerbation (principal); J96.21 Acute and chronic respiratory failure with hypoxia; D68.69 Other thrombophilia; I48.20 Chronic atrial fibrillation, unspecified; E87.1 Hypo-osmolality and hyponatremia; I24.8 Other forms of acute ischemic heart disease; I48.91 Unspecified atrial fibrillation; E03.9 Hypothyroidism, unspecified; I11.0 Hypertensive heart disease with heart failure; I25.2 Old myocardial infarction; I27.20 Pulmonary hypertension, unspecified; I50.9 Heart failure, unspecified; I73.9 Peripheral vascular disease, unspecified; M06.9 Rheumatoid arthritis, unspecified; Z79.01 Long term (current) use of anticoagulants; Z87.11 Personal history of peptic ulcer disease; Z87.891 Personal history of nicotine dependence; Z88.1 Allergy status to other antibiotic agents; Z88.2 Allergy status to sulfonamides; Z88.8 Allergy status to other drugs, medicaments and biological substances; Z91.048 Other nonmedicinal substance allergy status; J20.9 Acute bronchitis, unspecified; E83.42 Hypomagnesemia
CPT/HCPCS: 36415; 71045; 80048; 82040; 82550; 83735; 83880; 84100; 84145; 84439; 84443; 84484; 85025; 93005; 93308; G0378; J7060; J2930; J7030

== ENCOUNTER 2019-12-27 20:44 | Emergency (ER) | payer MEDICARE ==
[~2019-12-27] VITALS: Ht 162.6 cm; Wt 57.8 kg
[2019-12-27 21:45] LABS: BASOPHILS # (AUTO) 0.03 x10^3/uL (0-0.1); BASOPHILS % (AUTO) 0 % (0-1); EOSINOPHILS # (AUTO) 0.48 x10^3/uL (0-0.4); EOSINOPHILS % (AUTO) 7 % (1-7); LYMPHOCYTES # (AUTO) 1.62 x10^3/uL (1-3.4); LYMPHOCYTES % (AUTO) 24 % (22-44); MD NO; MEAN CORPUSCULAR HEMOGLOBIN 28.7 pg (27.0-34.8); MEAN CORPUSCULAR HGB CONC 31.9 g/dL (32.4-35.8); MEAN CORPUSCULAR VOLUME 89.9 fL (80-100); MEAN PLATELET VOLUME 9.1 fL (7.4-10.4); MONOCYTES # (AUTO) 0.62 x10^3/uL (0.2-0.8); MONOCYTES % (AUTO) 9 % (2-9); NEUTROPHILS # (AUTO) 4.13 x10^3/uL (1.8-6.8); NEUTROPHILS % (AUTO) 60 % (42-75); PLATELET COUNT 257 x10^3/uL (130-400); RED BLOOD COUNT 4.07 x10^6/uL (3.82-5.3); RED CELL DISTRIBUTION WIDTH 13.7 % (9.6-15.2)
[2019-12-27 21:56] LABS: ANION GAP 4 mmol/L (5-15); CALCIUM 8.9 mg/dL (8.5-10.1); CHLORIDE 99 mmol/L (98-107); CREATININE 0.56 mg/dL (0.55-1.02)
--- NOTE | 2019-12-27 21:56 | NUR ---
PT REPORT TO ELAINE LOVE. PT CARE TRANSFERRED.
[2019-12-27 21:57] LABS: ALANINE AMINOTRANSFERASE 26 U/L (12-78); ALBUMIN 3.2 g/dL (3.4-5.0)
[2019-12-27 22:01] LABS: ALKALINE PHOSPHATASE 90 U/L (45-117); BILIRUBIN,TOTAL 0.3 mg/dL (0.2-1.0); TOTAL PROTEIN 7.2 g/dL (6.4-8.2); TROPONIN I 0.047 ng/mL (0.000-0.045)
[2019-12-27] MEDS ORDERED: ALBUTEROL/IPRATROPIUM 2.5MG/0.5MG, 3 ML ONE (22:25)
[2019-12-27] MEDS ORDERED: ALBUTEROL/IPRATROPIUM 2.5MG/0.5MG, 3 ML NPPB ONE (22:30)
[2019-12-27 22:44] VITALS: BP 126/57
== END 2019-12-28 00:05 | disposition home or self-care (01) ==
LOC: ED 22:20
DX: J44.1 Chronic obstructive pulmonary disease with (acute) exacerbation (principal); R06.00 Dyspnea, unspecified; R07.89 Other chest pain; R00.0 Tachycardia, unspecified; J44.9 Chronic obstructive pulmonary disease, unspecified; I48.91 Unspecified atrial fibrillation; I11.0 Hypertensive heart disease with heart failure; I50.9 Heart failure, unspecified; E03.9 Hypothyroidism, unspecified; Z87.891 Personal history of nicotine dependence
CPT/HCPCS: 36415; 71045; 80053; 83880; 84484; 85025; 93005; 94640; 99285; J7512